=== PATIENT | male | born 1940 | race Caucasian/White ===

== ENCOUNTER 2017-05-15 19:48 | Emergency (ER) | payer MEDICARE, SELFPAY ==
[2017-05-15 19:49] VITALS: BP 143/102; PULSE 87; RESP 17; TEMP 36.5; O2SAT 96; BMI 33.3
--- NOTE | 2017-05-15 19:52 | NURSING ---
CALLED FOR EKG PER RN REQUEST, PULLED OLD EKG'S FOR
--- NOTE | 2017-05-15 20:00 | EKG12_ITS ---
Test Reason : CP Blood Pressure : / mmHG Vent. Rate : 094 BPM Atrial Rate : 138 BPM P-R Int : 000 ms QRS Dur : 088 ms QT Int : 386 ms P-R-T Axes : 000 060 024 degrees QTc Int : 482 ms Atrial fibrillation with premature ventricular or aberrantly conducted complexes Prolonged QT Abnormal ECG Confirmed by CRISTI HUFF, REECE ([id number]), editor farm journal RUTH ANN GALLAGHER ([id number]) on 05/18/2017 1:44:39 PM Referred By: CURT Confirmed By:REECE COLIN MD
--- NOTE | 2017-05-15 20:01 | RAD_ITS ---
STUDY: X-RAY CHEST REASON FOR EXAM: Male, 77 years old. Chest pain TECHNIQUE: Frontal and lateral views of the chest. COMPARISON: November 09, 2015 FINDINGS: Sternotomy wires are noted. The lungs are clear and expanded. There is no demonstrated pleural abnormality. Normal size heart. Normal mediastinum and jose j. Normal visualized pulmonary arteries. Normal visualized aortic arch and descending thoracic aorta. Normal visualized thoracic spine. Normal visualized ribs, clavicles, and shoulders. Moderate hiatal hernia. RAD/Chest PA and Lateral IMPRESSION: Moderate hiatal hernia. Sternotomy. No acute disease. Electronically Signed: Rayomnd Olmos MD at 20:34 EST , Service support ,
[2017-05-15 20:12] LABS: Absolute Lymphocyte Count 1.12 X10^3/ul (0.83-4.51); Absolute Neutrophil Count 5.2 X10^3/uL (2.0-7.7); Basophil# 0.02 X10^3/uL; Basophil% 0.3 % (0-1); Eosinophil# 0.06 X10^3/uL; Eosinophils% 0.9 % (0-5); Hematocrit 42.5 % (40-54); Hemoglobin 13.9 g/dl (13.0-16.5); Lymphocyte # 1.12 X10^3/ul (4.0); Lymphocyte % 16.1 % (19-41); Mean Corp Hgb Conc 32.7 g/gl (32-36); Mean Corpuscular Hgb 33.2 pg (27.0-32.0); Mean Corpuscular Volume 101.4 fL (80-94); Mean Platelet Vol. 10.4 fl (6.2-12.0); Monocyte# 0.53 X10^3/uL; Monocyte% 7.6 % (0-10); Platelet Count 190 K/mm3 (150-450); RBC Distribution Width CV 14.6 % (11.6-14.6); RBC Distribution Width SD 54.2 fl (35.1-43.9); Red Blood Count 4.19 M/mm3 (4.6-6.2); White Blood Count 6.9 K/mm3 (4.4-11.0)
[2017-05-15 20:16] LABS: International Normalized Ratio 2.6; Prothrombin Time (Protime)PT. 27.1 SECONDS (11.7-14.9)
[2017-05-15 20:25] LABS: AST(SGOT) 31 U/L (15-37); Alanine Aminotransfer ALT/SGPT 31 U/L (16-61); Albumin, Serum 3.7 g/dL (3.2-5.0); Alkaline Phosphatase 167 U/L (45-117); Anion Gap 11 (5-15); BUN 64 mg/dL (7-18); BUN/Creat Ratio 41.8 RATIO (10-20); Bilirubin, Direct 0.29 mg/dL (0.00-0.30); Calcium,Total 9.1 mg/dL (8.5-10.1); Chloride 93 mmol/L (98-107); Creatinine, Serum 1.53 mg/dL (0.70-1.30); EST Glomerular Filtration Rate 47 mL/min (>60); Est Glom Filt Rate - Afr Amer 57 mL/min (>60); Estimated Creatinine Clearance 37.88 ml/min; Globulin 4.4 g/dL (2.2-4.2); Glucose 100 mg/dL (74-106); Potassium 3.6 mmol/L (3.5-5.1); Protein, Total 8.1 g/dL (6.4-8.2); Sodium Level 138 mmol/L (136-145)
[2017-05-15 20:27] LABS: POSITIVE COUNT NO; POSITIVE DIFFERENTIAL NO; POSITIVE MORPHOLOGY NO
--- NOTE | 2017-05-15 20:58 | ED.VISSUMM ---
- ER Visit Summary Date of Service: 05/15/17 Chief Complaint: Bilateral acute upper abdominal pain and left arm discomfort History of Present Illness: The patient is a 77 M who has history of Alzheimer's dementia and is not a good informant. He told the triage nurse he had right-sided chest pain. Daughter who is a OB nurse at [employer] states he complained of bilateral upper abdominal discomfort with discomfort in his left upper extremity. He did not appear pale. He was not sweating, nor did he look as if he was having difficulty breathing. He did not voice any complaints of nausea. There is no vomiting. He did make the comment that he believes he is constipated. He does have history of atrial fibrillation and is on Coumadin. He has no known coronary artery disease. 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 Presently he states he has no symptoms or complaints. Physical Examination: Vital signs are marked for slight elevation blood pressure 143/102. HEENT exam is unremarkable. Heart is regular. Lungs are clear to auscultation with good movement bilaterally. There is no reproducible chest or back pain. Abdomen is soft nontender with out hepatosplenomegaly. Negative clinical Rossi sign. Lower extremities remarkable for venous stasis dermatitis with bilateral lymphedema. He is not oriented to date or place. He even commented he is not sure why he is here. Test Results: Hepatic profile is remarkable for slight elevation of alk phos. Electrode panel was marked for slight elevation of CO2 and creatinine at 34 and 1.53 respectively. GFR is 41.8. White count H&H normal. Troponin less than 0.02. Chest x-ray reveals no acute pathology. Emergency Department Course and Treatment: Because his symptoms started after he had steak and lb Raymond's hepatic profile was obtained. Of note he did get improvement with the Tums. This may represent gastric distress/irritation/gastritis/esophagitis. This also may be an atypical cardiac presentation. Treatment Plan: Since his EKG cardiac enzymes are normal and the fact that he got relief 1 hour after he was given Tums and the pain was located in the abdomen and his only concern was that he was constipated it is my opinion this is most likely GI and he could follow-up with Dr. Marx as an outpatient. Disposition: Discharged to home with and daughter Impression: 1. Acute bilateral upper abdominal pain 2. Suspect indigestion versus GERD 3. History of chronic atrial fibrillation 4. History of prostate cancer 5. History hypertension 6. History of hypercholesterolemia 7. History of Alzheimer's dementia 8. History of bilateral lymphedema with venous dermatitis This note was generated with [employer] dictation software. It may contain incorrect words, spelling, and punctuation that were not noted in review of the chart prior to signing ED Disposition - Plan for ED Patient: Disposition: Home or Assisted Living Chief Complaint: Chest Pain Instructions: ED Epigastric Pain [facility] Referrals: Coleman Bang MD [Primary Care Provider] - As Needed
--- NOTE | 2017-05-15 21:06 | ED.DCSUM_ITS ---
- ER Visit Summary Date of Service: 05/15/17 Chief Complaint: Bilateral acute upper abdominal pain and left arm discomfort History of Present Illness: The patient is a 77 M who has history of Alzheimer' s dementia and is not a good informant. He told the triage nurse he had right- sided chest pain. Daughter who is a OB nurse at [employer] states he complained of bilateral upper abdominal discomfort with discomfort in his left upper extremity. He did not appear pale. He was not sweating, nor did he look as if he was having difficulty breathing. He did not voice any complaints of nausea. There is no vomiting. He did make the comment that he believes he is constipated. He does have history of atrial fibrillation and is on Coumadin. He has no known coronary artery disease. 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 Presently he states he has no symptoms or complaints. Physical Examination: Vital signs are marked for slight elevation blood pressure 143/102. HEENT exam is unremarkable. Heart is regular. Lungs are clear to auscultation with good movement bilaterally. There is no reproducible chest or back pain. Abdomen is soft nontender with out hepatosplenomegaly. Negative clinical Rossi sign. Lower extremities remarkable for venous stasis dermatitis with bilateral lymphedema. He is not oriented to date or place. He even commented he is not sure why he is here. Test Results: Hepatic profile is remarkable for slight elevation of alk phos. Electrode panel was marked for slight elevation of CO2 and creatinine at 34 and 1.53 respectively. GFR is 41.8. White count H&H normal. Troponin less than 0.02. Chest x-ray reveals no acute pathology. Emergency Department Course and Treatment: Because his symptoms started after he had steak and lb Raymond's hepatic profile was obtained. Of note he did get improvement with the Tums. This may represent gastric distress/irritation/ gastritis/esophagitis. This also may be an atypical cardiac presentation. Treatment Plan: Since his EKG cardiac enzymes are normal and the fact that he got relief 1 hour after he was given Tums and the pain was located in the abdomen and his only concern was that he was constipated it is my opinion this is most likely GI and he could follow-up with Dr. Marx as an outpatient. Disposition: Discharged to home with and daughter Impression: 1. Acute bilateral upper abdominal pain 2. Suspect indigestion versus GERD 3. History of chronic atrial fibrillation 4. History of prostate cancer 5. History hypertension 6. History of hypercholesterolemia 7. History of Alzheimer's dementia 8. History of bilateral lymphedema with venous dermatitis This note was generated with [employer] dictation software. It may contain incorrect words, spelling, and punctuation that were not noted in review of the chart prior to signing ED Disposition - Plan for ED Patient: Disposition: Home or Assisted Living Chief Complaint: Chest Pain Instructions: ED Epigastric Pain [facility] Referrals: Coleman Bang MD [Primary Care Provider] - As Needed
[2017-05-15 21:21] VITALS: BP 146/91; PULSE 85; PULSE 91; RESP 14; RESP 17; O2SAT 95; O2SAT 98
== END 2017-05-15 21:32 | disposition home or self-care (01) ==
PROVIDERS: Emergency Provider Emergency Medicine; Family Provider Family Medicine; PCP Family Medicine
DX: R10.12 Left upper quadrant pain (principal); R10.11 Right upper quadrant pain; M79.602 Pain in left arm; I48.2 Chronic atrial fibrillation; I11.0 Hypertensive heart disease with heart failure; I50.9 Heart failure, unspecified; E78.00 Pure hypercholesterolemia, unspecified; I87.2 Venous insufficiency (chronic) (peripheral); I89.0 Lymphedema, not elsewhere classified; G30.9 Alzheimer's disease, unspecified; F02.80 Dementia in other diseases classified elsewhere, unspecified severity, without behavioral disturbance, psychotic disturbance, mood disturbance, and anxiety; E66.9 Obesity, unspecified; Z85.46 Personal history of malignant neoplasm of prostate; Z79.01 Long term (current) use of anticoagulants; Z79.899 Other long term (current) drug therapy
CPT/HCPCS: 71046; 80048; 80076; 84484; 85025; 85610; 93005; 99284; A4216

== ENCOUNTER 2017-05-16 13:30 | Outpatient (RCR) | payer MEDICARE, SELFPAY ==
[2017-05-09 12:54] VITALS: BP 124/70; PULSE 80; RESP 16; TEMP 36.4; BMI 33.4
--- NOTE | 2017-05-09 14:20 | HP.PCM_ITS ---
(1) Pressure ulcer of buttock Status: Chronic Current Visit: Yes Qualifiers: Pressure ulcer stage: stage 2 Laterality: right Qualified Code(s): L89.312 - Pressure ulcer of right buttock, stage 2 Code(s): L89.309 - Pressure ulcer of unspecified buttock, unspecified stage (2) Physical deconditioning Status: Chronic Current Visit: Yes Code(s): R53.81 - Other malaise (3) Sleep apnea Status: Chronic Current Visit: No Code(s): G47.30 - Sleep apnea, unspecified (4) Atrial fibrillation Status: Chronic Current Visit: No Code(s): I48.91 - Unspecified atrial fibrillation (5) Hypertension Status: Chronic Current Visit: No Code(s): I10 - Essential (primary) hypertension (6) Dementia Status: Chronic Current Visit: No Qualifiers: Dementia type: Alzheimer's disease Code(s): F03.90 - Unspecified dementia without behavioral disturbance (7) Alzheimer's disease Status: Chronic Current Visit: No Code(s): G30.9 - Alzheimer's disease, unspecified (8) Weakness Status: Chronic Current Visit: No Code(s): R53.1 - Weakness (9) Dependent edema Status: Chronic Current Visit: No Code(s): R60.9 - Edema, unspecified (10) History of stroke Status: Chronic Current Visit: No Code(s): Z86.73 - Personal history of transient ischemic attack (TIA), and cerebral infarction without residual deficits (11) Hyperlipidemia Status: Chronic Current Visit: No Code(s): E78.5 - Hyperlipidemia, unspecified (12) CHF (congestive heart failure) Status: Chronic Current Visit: No Code(s): I50.9 - Heart failure, unspecified (13) Prostate cancer Status: Chronic Current Visit: No Code(s): C61 - Malignant neoplasm of prostate (14) History of endocarditis Status: Chronic Current Visit: No Code(s): Z86.79 - Personal history of other diseases of the circulatory system (15) Obesity Status: Chronic Current Visit: No Code(s): E66.9 - Obesity, unspecified (16) Swelling of lower extremity Status: Chronic Current Visit: No Code(s): M79.89 - Other specified soft tissue disorders (17) Edema of both legs Status: Chronic Current Visit: No Code(s): R60.0 - Localized edema History of Present Illness Date of Service: 05/09/17 Chief Complaint: Pressure ulceration of the right buttock, stage II History of Wound: This is a 77-year-old white male who presents with a chronic ulceration on the right buttock, present for approximately 8 weeks. It appears to represent a pressure ulceration. The patient is not ambulatory, and is physically deconditioned. He spends the preponderance of his day in a sitting position, and also sleeps in a sitting position as well. The patient lives at home with his . Family members assist the in caring for her . The patient's has been using collagen hydrogel topically. Has been known to have swelling in his lower extremities, for which she has been treated in the past. He currently wears compression stockings of 10-15 mmHg compression, on a daily basis. He also uses mechanical compression pumps as well. He has a [place] cardiac valve, for which she is on systemic anticoagulation therapy. His appetite is said to be good. He suffers from dementia and Alzheimer's disease. He is also obese. Past Medical History Past Medical History: Chronic Problems Pressure ulcer of buttock (Chronic) Physical deconditioning (Chronic) Sleep apnea (Chronic) Atrial fibrillation (Chronic) Hypertension (Chronic) Dementia (Chronic) Alzheimer's disease (Chronic) Weakness (Chronic) Lymphedema (Chronic) Ulcer of left lower leg (Chronic) Chronic venous insufficiency (Chronic) Dependent edema (Chronic) History of stroke (Chronic) H/O prosthetic mitral valve (Chronic) Renal insufficiency (Chronic) Limited mobility (Chronic) Hyperlipidemia (Chronic) CHF (congestive heart failure) (Chronic) Prostate cancer (Chronic) History of endocarditis (Chronic) Obesity (Chronic) Ulcer of right leg (Chronic) Swelling of lower extremity (Chronic) Edema of both legs (Chronic) Past Medical History: Patient has a history of retention, hyperlipidemia, sleep apnea, dementia, Alzheimer's disease, peripheral arterial occlusive disease, obesity, atrial fibrillation, lower extremity swelling and edema, cerebro- vascular accident, and prostate cancer which was treated with radiation. The patient's history is negative for myocardial infarction, diabetes mellitus, pulmonary disease, and thyroid disease. Surgical History: cataract - Bilateral, herniorrhaphy - Inguinal hernia repair, tonsillectomy, - - Mitral valve replacement, 1993 Allergies/Adverse Reactions: Allergies atorvastatin calcium [From Lipitor] Adverse Reaction (Verified 05/09/17 13:26) Other Home Medications: Ambulatory Orders Medication Instructions Recorded Finasteride [Proscar] 5 mg PO DAILY #30 tablet 11/20/15 Memantine Hydrochloride [Namenda] 10 mg PO BID #60 tablet 11/20/15 Metoprolol Tartrate [Lopressor 25 mg PO BID #60 tablet 11/20/15 (beta jeffery)] Tamsulosin HCl [Flomax] 0.8 mg PO DAILY@1730 #60 capsule 11/20/15 Acetaminophen [Tylenol Extra 500 mg PO QHS 05/09/17 Strength] Acetaminophen [Tylenol] 1,000 mg PO DAILY 05/09/17 Alpha Lipoic Acid 50 mg PO DAILY 05/09/17 Aps-Ii 2 tab PO DAILY 05/09/17 Famotidine [Pepcid] 40 mg PO DAILY 05/09/17 Focus Attention 1 - 2 tab PO DAILY 05/09/17 Furosemide [Lasix] 80 mg PO BID@1000,1800 05/09/17 Goldenseal/Echinacea Purpurea 2 each PO DAILY 05/09/17 [Echinacea & Goldenseal Cap] [id number] 1 - 2 tab PO DAILY 05/09/17 Metolazone [Zaroxolyn] 2.5 mg PO DAILY 05/09/17 Mood Elevator 1 - 2 tab PO DAILY 05/09/17 Senna/Docusate Sodium [Senokot-S] 1 tablet PO DAILY 05/09/17 Spironolactone [Aldactone] 50 mg PO DAILY 05/09/17 Tolterodine Tartrate [Detrol LA] 4 mg PO DAILY 05/09/17 Ubidecarenone [Coq10] mg PO BID 05/09/17 Warfarin [Coumadin ([facility]KC)] 3 mg PO DAILY 05/09/17 - Family History Maternal No pertinent history, - - Not much is known about the patient's parents. They each lived to be approximately 85 years of age. The patient's father was known to suffer from obesity and a stroke. Social History: Patient is a retired [employer]. Does not smoke or consume alcohol beverages. He live with his . Lives: Spouse/ Significant Other Smoking Status: Never smoker Tobacco Use: Non-smoker Alcohol: None Drugs: None Review of Systems Constitutional: Denies: Chills, Fever, Weight Change Eyes: Denies: Pain, Vision Change HEENT: Denies: Difficulty Hearing, Difficulty Swallowing, Sinus Congestion Cardiovascular: Denies: Chest Pain, Palpitations Respiratory: Denies: Cough, Shortness of Breath Gastrointestinal: Denies: Diarrhea, Nausea, Vomiting Genitourinary: Denies: Dysuria, Hematuria Endocrine: Denies: Heat/ Cold Intolerance, Polydipsia, Polyuria Hematologic/ Lymphatic: Denies: Easy Bruising, Easy Bleeding - Physical Exam Vital Signs Temp Pulse Resp BP 97.5 F L 80 16 124/70 H 05/09/17 12:54 05/09/17 12:54 05/09/17 12:54 05/09/17 12:54 General: Alert, Oriented x3, Cooperative, No apparent distress, Well developed, Well nourished, - - The patient is noted to be weak and deconditioned. HEENT: Atraumatic, PERRLA, EOMI, Normocephalic Oral: Moist Mucosa, No Gingival or Mucosal Lesions/ Ulcerations Neck: Supple, No JVD, Negative Carotid Bruits, No Nodes, No Nuchal Rigidity, Trachea Midline Lungs: Clear to auscultation, Normal air movement, No rhonchi, No wheeze, No rales Cardiovascular: Regular rate, Regular Rhythm, Normal S1, Normal S2, No murmurs, No Ectopic Activity Abdomen: Soft, Non Tender, Non-Distended, Obese Extremities: No clubbing, No cyanosis, No Calf Tenderness, - - Graduated compression stockings are in place bilaterally Skin: No rashes, - - She has a superficial pressure ulceration on the right buttock, which appears to be a stage II. Dimensions are documented elsewhere. There is no sign of infection or cellulitis. Base of the ulceration is pink and healthy in appearance. Wound Measurements and Assessment WC - Nurse 1 - General Ulcer Measurement Start: 05/09/17 12:48 Freq: Status: Active Protocol: Activity Type Activity Date Activity User E-Sign Co-Sign Detail Recorded Client Recorded Date Recorded By Document 05/09/17 12:54 [facility] [id number] 05/09/17 13:14 [facility] 05/09/17 12:54 Wound Center Nurse 1 [Ulcer Assessment] #5- RT INNER BUTTOCK -Combined with other wound No -Current Size (cm) - Length 1.3 -Current Size (cm) - Width 0.9 -Current Size (cm) - Depth 0.1 -Total Square Cm 1.17 -Date of Last Picture (Recall this 05/09/17 field) -Photo Taken Yes -Epithelialization None Present -Tunneling No -Undermining/Tunneling No -Exudate Amt None Present (0 %) -Wound Margin Distinct, Outline Attached -Granulation Amt Large (67-100%) -Granulation Quality Pale [place] -Slough/Fibrin No -Necrosis Amt None Present (0 %) -Structure Exposed None/Limited to Skin Breakdown -Texture (Dianne-wound Skin Appearance) Scarring -Moisture (Dianne-wound Skin Appearance Assessed ) -Color (Dianne-wound Skin Appearance) Erythema -Temperature (Dianne-wound Skin No Abnormality Appearance) (Pt Warm) -Tenderness on Palpation (Dianne-wound Yes Skin Appearance) -Ulcer Cleansing Rinsed/ Irrigated with Saline -Foul Odor after Cleansing No -Anesthetic Used 4% Lidocaine Solution WC - Nurse 2 - General Ulcer CM Notes Start: 05/09/17 12:48 Freq: Status: Active Protocol: Activity Type Activity Date Activity User E-Sign Co-Sign Detail Recorded Client Recorded Date Recorded By Document 05/09/17 13:54 [id number] 05/09/17 13:55 ROSALIE 05/09/17 13:54 Wound Center Nurse 2 [Procedure/Treatment] -Time 13:54 -Correct Patient Yes -Correct Side, Site, Position Yes -Correct Procedure Yes -Procedure Performed Yes -Type of Procedure Debridement -Clinical Debridement Subcutaneous -Post Debridement Size (cm) - Length 1.4 -Post Debridement Size (cm) - Width 1.0 -Post Debridement Size (cm) - Depth 0.1 -Total Square Cm 1.40 -Wound/Ulcer Outcome Not Healed -Ulcer Cleansing Rinsed/ Irrigated with Saline -Foul Odor after Cleansing No -Bioengineered Tissue No -Topical Lidocaine (%) 4 -Lidocaine (ml) 5 -Bleeding Controlled with NA -Treatment Response Procedure Tolerated Well [See Physician Procedure note for Specifics] Pain Scale: 0-10 Numeric [Pain] -Is Patient Pain Free? Yes Musculoskeletal: Muscle Wasting Neurological: Cranial nerves II-XII grossly intact, Neuro grossly intact Psych/Mental Status: Normal Affect, Appropriate, Alert and oriented to time, place, person, mood and affect Debridement Note Post-Debridement Measurements/Treatment WC - Nurse 2 - General Ulcer CM Notes Start: 05/09/17 12:48 Freq: Status: Active Protocol: Activity Type Activity Date Activity User E-Sign Co-Sign Detail Recorded Client Recorded Date Recorded By Document 05/09/17 13:54 [id number] 05/09/17 13:55 05/09/17 13:54 Wound Center Nurse 2 #5- RT INNER BUTTOCK -Time 13:54 -Correct Patient Yes -Correct Side, Site, Position Yes -Correct Procedure Yes -Procedure Performed Yes -Type of Procedure Debridement -Clinical Debridement Subcutaneous -Post Debridement Size (cm) - Length 1.4 -Post Debridement Size (cm) - Width 1.0 -Post Debridement Size (cm) - Depth 0.1 -Total Square Cm 1.40 -Wound/Ulcer Outcome Not Healed -Ulcer Cleansing Rinsed/ Irrigated with Saline -Foul Odor after Cleansing No -Bioengineered Tissue No -Topical Lidocaine (%) 4 -Lidocaine (ml) 5 -Bleeding Controlled with NA -Treatment Response Procedure Tolerated Well Pain Scale: 0-10 Numeric Is Patient Pain Free? Yes Laterality: Right - Buttock Type of Debridement: Excisional debridement Anesthesia Used: 4% Lidocaine Solution Depth: Down to and including healthy tissue, in the subcutaneous layer Percentage of wound debrided: 100 Instrument Used: 5mm curette Severity: Fat Layer Exposed Amount of bleeding with debridement: Mild Bleeding Controlled with: Compression and gauze Patient tolerated procedure well Assessment/Plan Active Problems Pressure ulcer of buttock (Chronic) Physical deconditioning (Chronic) Assessment: This is a 77-year-old male who is severely deconditioned and nonambulatory. He spends long hours each day in a sitting position, and sleeps in a sitting position as well. He has developed an ulceration on the right buttock, which appears to be related to pressure phenomenon or friction forces. It appears to be a stage II pressure ulceration. Patient has other existing medical conditions, which are documented elsewhere. Plan: Offloading measures are to be implemented. The means by which this is to be accomplished have been described to the patient and his , who is his caregiver. He is to avoid prolonged sitting. Frequent repositioning has been recommended. Roho cushion is to be prescribed. We are to obtain routine laboratory studies, including a CBC and a comprehensive metabolic profile. We are to initiate the use of collagenase Santyl topically to the right buttock ulceration. The patient and his have been advised to elevate his lower extremities as much as possible, continue with graduated compression stockings, and to continue with the use of mechanical compression pumps. Patient is to return in 1 week for reassessment. The patient's nutrition has been recommended. Appetite is said to be good. He is also said to be continent, and appropriate hygiene in the perianal area is recommended. The patient is not a smoker. Influenza vaccine was not administered today. The patient was 225 pounds. He stands 5 feet 8 inches tall. His BMI is 34.2, which places him in a class I category. Weight loss has been recommended, and the patient has been advised to collaborate with his primary care physician in this regard.
[2017-05-09 17:06] LABS: ALB/GLOB Ratio 0.9 RATIO (0.9-2.4); AST(SGOT) 23 U/L (15-37); Alanine Aminotransfer ALT/SGPT 25 U/L (16-61); Albumin, Serum 3.9 g/dL (3.2-5.0); Alkaline Phosphatase 161 U/L (45-117); Anion Gap 7 (5-15); BUN 61 mg/dL (7-18); BUN/Creat Ratio 34.1 RATIO (10-20); Calcium,Total 9.2 mg/dL (8.5-10.1); Chloride 97 mmol/L (98-107); Creatinine, Serum 1.79 mg/dL (0.70-1.30); EST Glomerular Filtration Rate 39 mL/min (>60); Est Glom Filt Rate - Afr Amer 47 mL/min (>60); Estimated Creatinine Clearance 32.37 ml/min; Globulin 4.3 g/dL (2.2-4.2); Glucose 91 mg/dL (74-106); Potassium 3.7 mmol/L (3.5-5.1); Protein, Total 8.2 g/dL (6.4-8.2); Sodium Level 138 mmol/L (136-145)
[2017-05-09 17:22] LABS: Hematocrit 40.3 % (40-54); Hemoglobin 12.8 g/dl (13.0-16.5); Mean Corp Hgb Conc 31.8 g/gl (32-36); Mean Corpuscular Hgb 32.8 pg (27.0-32.0); Mean Corpuscular Volume 103.3 fL (80-94); Mean Platelet Vol. 10.8 fl (6.2-12.0); Platelet Count 194 K/mm3 (150-450); RBC Distribution Width SD 56.4 fl (35.1-43.9); White Blood Count 5.3 K/mm3 (4.4-11.0)
[2017-05-09 18:12] LABS: Scan Indicated on CBC? Y/N NO
[2017-05-16 13:19] VITALS: BP 119/81; PULSE 92; RESP 16; TEMP 36.3; BMI 33.4
--- NOTE | 2017-05-16 14:10 | PCM.WC.HP ---
(1) Pressure ulcer of buttock Status: Chronic Current Visit: Yes Qualifiers: Pressure ulcer stage: stage 2 Laterality: right Qualified Code(s): L89.312 - Pressure ulcer of right buttock, stage 2 Code(s): L89.309 - Pressure ulcer of unspecified buttock, unspecified stage (2) Physical deconditioning Status: Chronic Current Visit: Yes Code(s): R53.81 - Other malaise (3) Sleep apnea Status: Chronic Current Visit: No Code(s): G47.30 - Sleep apnea, unspecified (4) Atrial fibrillation Status: Chronic Current Visit: No Code(s): I48.91 - Unspecified atrial fibrillation (5) Hypertension Status: Chronic Current Visit: No Code(s): I10 - Essential (primary) hypertension (6) Dementia Status: Chronic Current Visit: No Qualifiers: Dementia type: Alzheimer's disease Code(s): F03.90 - Unspecified dementia without behavioral disturbance (7) Alzheimer's disease Status: Chronic Current Visit: No Code(s): G30.9 - Alzheimer's disease, unspecified (8) Weakness Status: Chronic Current Visit: No Code(s): R53.1 - Weakness (9) Dependent edema Status: Chronic Current Visit: No Code(s): R60.9 - Edema, unspecified (10) History of stroke Status: Chronic Current Visit: No Code(s): Z86.73 - Personal history of transient ischemic attack (TIA), and cerebral infarction without residual deficits (11) Hyperlipidemia Status: Chronic Current Visit: No Code(s): E78.5 - Hyperlipidemia, unspecified (12) CHF (congestive heart failure) Status: Chronic Current Visit: No Code(s): I50.9 - Heart failure, unspecified (13) Prostate cancer Status: Chronic Current Visit: No Code(s): C61 - Malignant neoplasm of prostate (14) History of endocarditis Status: Chronic Current Visit: No Code(s): Z86.79 - Personal history of other diseases of the circulatory system (15) Obesity Status: Chronic Current Visit: No Code(s): E66.9 - Obesity, unspecified (16) Swelling of lower extremity Status: Chronic Current Visit: No Code(s): M79.89 - Other specified soft tissue disorders (17) Edema of both legs Status: Chronic Current Visit: No Code(s): R60.0 - Localized edema History of Present Illness Date of Service: 05/16/17 Chief Complaint: Pressure ulceration of the right buttock, stage II History of Wound: This is a 77-year-old white male who presents with a chronic ulceration on the right buttock, present for approximately 8 weeks. It appears to represent a pressure ulceration. The patient is not ambulatory, and is physically deconditioned. He spends the preponderance of his day in a sitting position, and also sleeps in a sitting position as well. The patient lives at home with his . Family members assist the in caring for her . The patient's has been using collagen hydrogel topically. The patient has been known to have swelling in his lower extremities, for which he has been treated in the past. He currently wears compression stockings of 10-15 mmHg compression, on a daily basis. He also uses mechanical compression pumps as well. 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 His appetite is said to be good. He suffers from dementia and Alzheimer's disease. He is also obese. There has been significant improvement in the status of his right buttock ulceration since initially seen 1 week ago. Patient is now nearly healed, with evidence of increasing epithelialization. Past Medical History Past Medical History: Chronic Problems Pressure ulcer of buttock (Chronic) Physical deconditioning (Chronic) Sleep apnea (Chronic) Atrial fibrillation (Chronic) Hypertension (Chronic) Dementia (Chronic) Alzheimer's disease (Chronic) Weakness (Chronic) Lymphedema (Chronic) Ulcer of left lower leg (Chronic) Chronic venous insufficiency (Chronic) Dependent edema (Chronic) History of stroke (Chronic) H/O prosthetic mitral valve (Chronic) Renal insufficiency (Chronic) Limited mobility (Chronic) Hyperlipidemia (Chronic) CHF (congestive heart failure) (Chronic) Prostate cancer (Chronic) History of endocarditis (Chronic) Obesity (Chronic) Ulcer of right leg (Chronic) Swelling of lower extremity (Chronic) Edema of both legs (Chronic) Surgical History: cataract - Bilateral, herniorrhaphy - Inguinal hernia repair, tonsillectomy, - - Mitral valve replacement, 1993 Allergies/Adverse Reactions: Allergies atorvastatin calcium [From Lipitor] Adverse Reaction (Verified 05/15/17 19:49) Other Home Medications: Ambulatory Orders Medication Instructions Recorded Finasteride [Proscar] 5 mg PO DAILY #30 tablet 11/20/15 Memantine Hydrochloride [Namenda] 10 mg PO BID #60 tablet 11/20/15 Metoprolol Tartrate [Lopressor 25 mg PO BID #60 tablet 11/20/15 (beta jeffery)] Tamsulosin HCl [Flomax] 0.8 mg PO DAILY@1730 #60 capsule 11/20/15 Alpha Lipoic Acid 50 mg PO DAILY 05/09/17 Aps-Ii 2 tab PO DAILY 05/09/17 Famotidine [Pepcid] 40 mg PO DAILY 05/09/17 Goldenseal/Echinacea Purpurea 2 each PO DAILY 05/09/17 [Echinacea & Goldenseal Cap] Ruiark-9-Seghlnrx 1 - 2 tab PO DAILY 05/09/17 Metolazone [Zaroxolyn] 2.5 mg PO DAILY 05/09/17 Senna/Docusate Sodium [Senokot-S] 1 tablet PO DAILY 05/09/17 Spironolactone [Aldactone] 50 mg PO DAILY 05/09/17 Tolterodine Tartrate [Detrol LA] 4 mg PO DAILY 05/09/17 Ubidecarenone [Coq10] 100 mg PO BID 05/09/17 Warfarin [Coumadin ([facility])] 3 mg PO DAILY 05/09/17 Potassium Chloride [K-Dur] 20 meq PO DAILY 05/15/17 Simvastatin [Zocor] 20 mg PO QHS 05/15/17 Tree Pollen-Black Jarales [Black 1 tab PO DAILY 05/15/17 Jarales Pollen] - Family History Maternal No pertinent history, - - Not much is known about the patient's parents. They each lived to be approximately 85 years of age. The patient's father was known to suffer from obesity and a stroke. Lives: Spouse/ Significant Other Smoking Status: Never smoker Tobacco Use: Non-smoker Alcohol: None Drugs: None Review of Systems Constitutional: Denies: Chills, Fever, Weight Change Eyes: Denies: Pain, Vision Change HEENT: Denies: Difficulty Hearing, Difficulty Swallowing, Sinus Congestion Cardiovascular: Denies: Chest Pain, Palpitations Respiratory: Denies: Cough, Shortness of Breath Gastrointestinal: Denies: Diarrhea, Nausea, Vomiting Genitourinary: Denies: Dysuria, Hematuria Endocrine: Denies: Heat/ Cold Intolerance, Polydipsia, Polyuria Hematologic/ Lymphatic: Denies: Easy Bruising, Easy Bleeding - Physical Exam Vital Signs Temp Pulse Resp BP 97.4 F L 92 16 119/81 H 05/16/17 13:19 05/16/17 13:19 05/16/17 13:19 05/16/17 13:19 General: Alert, Oriented x3, Cooperative, No apparent distress, Well developed, Well nourished HEENT: Atraumatic, PERRLA, EOMI, Normocephalic Oral: Moist Mucosa Neck: No JVD Lungs: Normal air movement Abdomen: Non-Distended Extremities: No clubbing, No cyanosis, No Calf Tenderness Skin: - - Right buttock ulceration is now nearly completely healed and epithelialized. There is no sign of infection or cellulitis. Dimensions are documented elsewhere. Wound Measurements and Assessment WC - Nurse 1 - General Ulcer Measurement Start: 05/09/17 12:48 Freq: Status: Active Protocol: Activity Type Activity Date Activity User E-Sign Co-Sign Detail Recorded Client Recorded Date Recorded By Document 05/16/17 13:19 DL [id number] 05/16/17 13:24 DL 05/16/17 13:19 Wound Center Nurse 1 [Ulcer Assessment] #5- RT INNER BUTTOCK -Current Size (cm) - Length 1 -Current Size (cm) - Width 0.9 -Current Size (cm) - Depth 0.1 -Total Square Cm 0.9 -Photo Taken No -Exudate Amt Small (1-33%) -Exudate Type Serosanguineous -Wound Margin Distinct, Outline Attached -Granulation Quality [place] -Necrosis Amt Large (67-100%) -Necrotic Tissue Type Adherent Slough -Structure Exposed N/A -Texture (Dianne-wound Skin Appearance) No Abnormality -Moisture (Dianne-wound Skin Appearance No Abnormality ) -Color (Dianne-wound Skin Appearance) No Abnormality -Temperature (Dianne-wound Skin No Abnormality Appearance) (Pt Warm) -Ulcer Cleansing Wound Cleanser -Foul Odor after Cleansing No -Anesthetic Used 4% Lidocaine Solution WC - Nurse 2 - General Ulcer CM Notes Start: 05/09/17 12:48 Freq: Status: Active Protocol: Activity Type Activity Date Activity User E-Sign Co-Sign Detail Recorded Client Recorded Date Recorded By Document 05/16/17 13:44 JS [id number] 05/16/17 13:54 05/16/17 13:44 Wound Center Nurse 2 [Procedure/Treatment] -Time 13:44 -Correct Patient Yes -Correct Side, Site, Position Yes -Correct Procedure Yes -Procedure Performed No -Clinical Debridement Selective -Wound/Ulcer Outcome Not Healed -Ulcer Cleansing Rinsed/ Irrigated with Saline -Topical Lidocaine (%) 4 -Lidocaine (ml) 5 -Bleeding Controlled with NA -Treatment Response Procedure Tolerated Well [See Physician Procedure note for Specifics] Pain Scale: 0-10 Numeric [Pain] -Is Patient Pain Free? Yes Neurological: Cranial nerves II-XII grossly intact, Neuro grossly intact Psych/Mental Status: Normal Affect, Appropriate Debridement Note Post-Debridement Measurements/Treatment WC - Nurse 2 - General Ulcer CM Notes Start: 05/09/17 12:48 Freq: Status: Active Protocol: Activity Type Activity Date Activity User E-Sign Co-Sign Detail Recorded Client Recorded Date Recorded By Document 05/09/17 13:54 [id number] 05/09/17 13:55 Document 05/16/17 13:44 [id number] 05/16/17 13:54 05/09/17 05/16/17 13:54 13:44 Wound Center Nurse 2 #5- RT INNER BUTTOCK -Time 13:54 13:44 -Correct Patient Yes Yes -Correct Side, Site, Position Yes Yes -Correct Procedure Yes Yes -Procedure Performed Yes No -Type of Procedure Debridement -Clinical Debridement Subcutaneous Selective -Post Debridement Size (cm) - Length 1.4 -Post Debridement Size (cm) - Width 1.0 -Post Debridement Size (cm) - Depth 0.1 -Total Square Cm 1.40 -Wound/Ulcer Outcome Not Healed Not Healed -Ulcer Cleansing Rinsed/ Rinsed/ Irrigated with Irrigated with Saline Saline -Foul Odor after Cleansing No -Bioengineered Tissue No -Topical Lidocaine (%) 4 4 -Lidocaine (ml) 5 5 -Bleeding Controlled with NA NA -Treatment Response Procedure Procedure Tolerated Well Tolerated Well Pain Scale: 0-10 Numeric Is Patient Pain Free? Yes Yes No debridement was completed today Assessment/Plan Active Problems Pressure ulcer of buttock (Chronic) Physical deconditioning (Chronic) Assessment: This is a 77-year-old male who is severely deconditioned and nonambulatory. He spends long hours each day in a sitting position, and sleeps in a sitting position as well. He has developed an ulceration on the right buttock, which appears to be related to pressure phenomenon or friction forces. It appears to be a stage II pressure ulceration. Patient has other existing medical conditions, which are documented elsewhere. There has been significant improvement in the status of the patient's right buttock ulceration since his initial visit a week ago. It is now much smaller in size, with evidence of epithelialization. There is no sign of infection or cellulitis. Plan: Offloading measures are to be continued. The means by which this is to be accomplished have been described to the patient and his , who is his caregiver. He is to avoid prolonged sitting. Frequent repositioning has been recommended. Roho cushion is to be prescribed. We are to obtain routine laboratory studies, including a CBC and a comprehensive metabolic profile. We are to transition from collagenase Santyl to the use of collagen hydrogel topically on a daily basis. The patient and his have been advised to elevate his lower extremities as much as possible, continue with graduated compression stockings, and to continue with the use of mechanical compression pumps. Patient is to return in 1 week for reassessment. Adequate nutrition has been recommended. Appetite is said to be good. He is also said to be continent, and appropriate hygiene in the perianal area is recommended. We will attempt to procure a Roho cushion for offloading purposes. The patient is not a smoker. Influenza vaccine was not administered today. The patient was 225 pounds. He stands 5 feet 8 inches tall. His BMI is 34.2, which places him in a class I category. Weight loss has been recommended, and the patient has been advised to collaborate with his primary care physician in this regard.
== END 2017-05-18 23:59 ==
LOC: WC 13:30
PROVIDERS: Family Provider Family Medicine; PCP Family Medicine; Visit Provider Surgery
DX: L89.312 Pressure ulcer of right buttock, stage 2 (principal); I48.91 Unspecified atrial fibrillation; G47.30 Sleep apnea, unspecified; R53.81 Other malaise; G30.9 Alzheimer's disease, unspecified; F02.80 Dementia in other diseases classified elsewhere, unspecified severity, without behavioral disturbance, psychotic disturbance, mood disturbance, and anxiety; E78.5 Hyperlipidemia, unspecified; Z86.73 Personal history of transient ischemic attack (TIA), and cerebral infarction without residual deficits; E66.9 Obesity, unspecified; Z68.33 Body mass index [BMI] 33.0-33.9, adult; Z71.3 Dietary counseling and surveillance; R60.0 Localized edema; M79.89 Other specified soft tissue disorders; C61 Malignant neoplasm of prostate; I11.0 Hypertensive heart disease with heart failure; I50.9 Heart failure, unspecified; Z95.2 Presence of prosthetic heart valve
CPT/HCPCS: 11042; 80053; 85027; 99213; G0463

== ENCOUNTER 2017-05-30 14:30 | Outpatient (RCR) | payer MEDICARE, SELFPAY ==
[2017-05-19 01:13] VITALS: PULSE 92; RESP 16; TEMP 36.3
[2017-05-23 14:50] VITALS: BP 110/61; PULSE 84; RESP 16; TEMP 36.3
--- NOTE | 2017-05-23 15:53 | HP.PCM_ITS ---
(1) Pressure ulcer of buttock Status: Chronic Current Visit: Yes Qualifiers: Pressure ulcer stage: stage 2 Laterality: right Qualified Code(s): L89.312 - Pressure ulcer of right buttock, stage 2 Code(s): L89.309 - Pressure ulcer of unspecified buttock, unspecified stage (2) Physical deconditioning Status: Chronic Current Visit: Yes Code(s): R53.81 - Other malaise (3) Sleep apnea Status: Chronic Current Visit: No Code(s): G47.30 - Sleep apnea, unspecified (4) Atrial fibrillation Status: Chronic Current Visit: No Code(s): I48.91 - Unspecified atrial fibrillation (5) Hypertension Status: Chronic Current Visit: No Code(s): I10 - Essential (primary) hypertension (6) Dementia Status: Chronic Current Visit: No Qualifiers: Dementia type: Alzheimer's disease Code(s): F03.90 - Unspecified dementia without behavioral disturbance (7) Alzheimer's disease Status: Chronic Current Visit: No Code(s): G30.9 - Alzheimer's disease, unspecified (8) Weakness Status: Chronic Current Visit: No Code(s): R53.1 - Weakness (9) Dependent edema Status: Chronic Current Visit: No Code(s): R60.9 - Edema, unspecified (10) History of stroke Status: Chronic Current Visit: No Code(s): Z86.73 - Personal history of transient ischemic attack (TIA), and cerebral infarction without residual deficits (11) H/O prosthetic mitral valve Status: Chronic Current Visit: No Code(s): Z95.2 - Presence of prosthetic heart valve (12) Renal insufficiency Status: Chronic Current Visit: No Code(s): N28.9 - Disorder of kidney and ureter, unspecified (13) Limited mobility Status: Chronic Current Visit: No Code(s): Z74.09 - Other reduced mobility (14) Hyperlipidemia Status: Chronic Current Visit: No Code(s): E78.5 - Hyperlipidemia, unspecified (15) CHF (congestive heart failure) Status: Chronic Current Visit: No Code(s): I50.9 - Heart failure, unspecified (16) Prostate cancer Status: Chronic Current Visit: No Code(s): C61 - Malignant neoplasm of prostate (17) History of endocarditis Status: Chronic Current Visit: No Code(s): Z86.79 - Personal history of other diseases of the circulatory system (18) Obesity Status: Chronic Current Visit: No Code(s): E66.9 - Obesity, unspecified (19) Swelling of lower extremity Status: Chronic Current Visit: No Code(s): M79.89 - Other specified soft tissue disorders (20) Edema of both legs Status: Chronic Current Visit: No Code(s): R60.0 - Localized edema History of Present Illness Date of Service: 05/23/17 Chief Complaint: Pressure ulceration of the right buttock, stage II History of Wound: This is a 77-year-old white male who presents with a chronic ulceration on the right buttock, which had been present for approximately 8 weeks. It appears to represent a pressure ulceration. The patient is not ambulatory, and is physically deconditioned. He spends the preponderance of his day in a sitting position, and also sleeps in a sitting position as well. The patient lives at home with his . Family members assist the in caring for her . The patient's had been using collagen hydrogel topically. The patient has been known to have swelling in his lower extremities , for which he has been treated in the past. He currently wears compression stockings of 10-15 mmHg compression, on a daily basis. He also uses mechanical compression pumps as well. 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 His appetite is said to be good. He suffers from dementia and Alzheimer's disease. He is also obese. There has been significant improvement in the status of his right buttock ulceration since initially seen. The patient's ulceration has been diminishing in size, with evidence of increasing epithelialization. Past Medical History Past Medical History: Chronic Problems Pressure ulcer of buttock (Chronic) Physical deconditioning (Chronic) Sleep apnea (Chronic) Atrial fibrillation (Chronic) Hypertension (Chronic) Dementia (Chronic) Alzheimer's disease (Chronic) Weakness (Chronic) Lymphedema (Chronic) Ulcer of left lower leg (Chronic) Chronic venous insufficiency (Chronic) Dependent edema (Chronic) History of stroke (Chronic) H/O prosthetic mitral valve (Chronic) Renal insufficiency (Chronic) Limited mobility (Chronic) Hyperlipidemia (Chronic) CHF (congestive heart failure) (Chronic) Prostate cancer (Chronic) History of endocarditis (Chronic) Obesity (Chronic) Ulcer of right leg (Chronic) Swelling of lower extremity (Chronic) Edema of both legs (Chronic) Surgical History: cataract - Bilateral, herniorrhaphy - Inguinal hernia repair, tonsillectomy, - - Mitral valve replacement, 1993 Allergies/Adverse Reactions: Allergies atorvastatin calcium [From Lipitor] Adverse Reaction (Verified 05/15/17 19:49) Other Home Medications: Ambulatory Orders Medication Instructions Recorded Finasteride [Proscar] 5 mg PO DAILY #30 tablet 11/20/15 Memantine Hydrochloride [Namenda] 10 mg PO BID #60 tablet 11/20/15 Metoprolol Tartrate [Lopressor 25 mg PO BID #60 tablet 11/20/15 (beta jeffery)] Tamsulosin HCl [Flomax] 0.8 mg PO DAILY@1730 #60 capsule 11/20/15 Alpha Lipoic Acid 50 mg PO DAILY 05/09/17 Aps-Ii 2 tab PO DAILY 05/09/17 Famotidine [Pepcid] 40 mg PO DAILY 05/09/17 Goldenseal/Echinacea Purpurea 2 each PO DAILY 05/09/17 [Echinacea & Goldenseal Cap] [id number]-[id number] 1 - 2 tab PO DAILY 05/09/17 Metolazone [Zaroxolyn] 2.5 mg PO DAILY 05/09/17 Senna/Docusate Sodium [Senokot-S] 1 tablet PO DAILY 05/09/17 Spironolactone [Aldactone] 50 mg PO DAILY 05/09/17 Tolterodine Tartrate [Detrol LA] 4 mg PO DAILY 05/09/17 Ubidecarenone [Coq10] 100 mg PO BID 05/09/17 Warfarin [Coumadin ([facility])] 3 mg PO DAILY 05/09/17 Potassium Chloride [K-Dur] 20 meq PO DAILY 05/15/17 Simvastatin [Zocor] 20 mg PO QHS 05/15/17 Tree Pollen-Black [place] [Black 1 tab PO DAILY 05/15/17 [place] Pollen] - Family History Maternal No pertinent history, - - Not much is known about the patient's parents. They each lived to be approximately 85 years of age. The patient's father was known to suffer from obesity and a stroke. Smoking Status: Never smoker Tobacco Use: Non-smoker Review of Systems Constitutional: Denies: Chills, Fever, Weight Change Eyes: Denies: Pain, Vision Change HEENT: Denies: Difficulty Hearing, Difficulty Swallowing, Sinus Congestion Cardiovascular: Denies: Chest Pain, Palpitations Respiratory: Denies: Cough, Shortness of Breath Gastrointestinal: Denies: Diarrhea, Nausea, Vomiting Genitourinary: Denies: Dysuria, Hematuria Endocrine: Denies: Heat/ Cold Intolerance, Polydipsia, Polyuria Hematologic/ Lymphatic: Denies: Easy Bruising, Easy Bleeding - Physical Exam Vital Signs Temp Pulse Resp BP 97.3 F L 84 16 110/61 05/23/17 14:50 05/23/17 14:50 05/23/17 14:50 05/23/17 14:50 General: Alert, Oriented x3, Cooperative, No apparent distress, Well developed, Well nourished, Lethargic, - - Weak HEENT: Atraumatic, PERRLA, EOMI, Normocephalic Oral: Moist Mucosa Neck: No JVD Lungs: Normal air movement Abdomen: Non-Distended Extremities: No clubbing, No cyanosis Skin: No rashes, - - The ulceration of the right buttock remains superficial. It is much smaller in size, with evidence of peripheral epithelialization. There is a small amount of bioburden. There is no sign of infection or cellulitis. Dimensions are documented elsewhere. Wound Measurements and Assessment WC - Nurse 1 - General Ulcer Measurement Start: 05/23/17 14:50 Freq: Status: Active Protocol: Activity Type Activity Date Activity User E-Sign Co-Sign Detail Recorded Client Recorded Date Recorded By Document 05/23/17 14:50 [id number] 05/23/17 14:52 05/23/17 14:50 Wound Center Nurse 1 [Ulcer Assessment] #5- RT INNER BUTTOCK -Combined with other wound No -Current Size (cm) - Length 0.8 -Current Size (cm) - Width 0.3 -Current Size (cm) - Depth 0.2 -Total Square Cm 0.24 -Photo Taken No -Epithelialization Medium 34-66% -Tunneling No -Undermining/Tunneling No -Circular Undermining No -Exudate Amt Small (1-33%) -Exudate Type Serosanguineous -Wound Margin Flat & Intact -Granulation Amt Medium (34-66%) -Granulation Quality [place] -Slough/Fibrin Yes -Necrosis Amt Small (1-33%) -Necrotic Tissue Type Adherent Slough -Structure Exposed N/A -Texture (Dianne-wound Skin Appearance) Assessed Scarring -Moisture (Dianne-wound Skin Appearance Assessed ) Dry/Scaly -Color (Dianne-wound Skin Appearance) Assessed -Temperature (Dianne-wound Skin No Abnormality Appearance) (Pt Warm) -Tenderness on Palpation (Dianne-wound No Skin Appearance) -Ulcer Cleansing Rinsed/ Irrigated with Saline -Foul Odor after Cleansing No -Anesthetic Used 4% Lidocaine Solution [Edema Assessment] -Lower Limb Edema Present NA - Nurse 2 - General Ulcer CM Notes Start: 05/23/17 14:50 Freq: Status: Active Protocol: Activity Type Activity Date Activity User E-Sign Co-Sign Detail Recorded Client Recorded Date Recorded By Document 05/23/17 15:30 [id number] 05/23/17 15:39 05/23/17 15:30 Wound Center Nurse 2 [Procedure/Treatment] #5- RT INNER BUTTOCK -Time 15:30 -Correct Patient Yes -Correct Side, Site, Position Yes -Correct Procedure Yes -Procedure Performed Yes -Type of Procedure Debridement -Clinical Debridement Subcutaneous -Post Debridement Size (cm) - Length 0.8 -Post Debridement Size (cm) - Width 0.3 -Post Debridement Size (cm) - Depth 0.1 -Total Square Cm 0.24 -Wound/Ulcer Outcome Not Healed -Ulcer Cleansing Rinsed/ Irrigated with Saline -Foul Odor after Cleansing No -Bioengineered Tissue No -Topical Lidocaine (%) 4 -Lidocaine (ml) 5 -Bleeding Controlled with NA -Treatment Response Procedure Tolerated Well [See Physician Procedure note for Specifics] Pain Scale: 0-10 Numeric [Pain] -Is Patient Pain Free? Yes Musculoskeletal: Muscle Wasting Neurological: Cranial nerves II-XII grossly intact Psych/Mental Status: Normal Affect, Appropriate, Alert and oriented to time, place, person, mood and affect Debridement Note Post-Debridement Measurements/Treatment - Nurse 2 - General Ulcer CM Notes Start: 05/23/17 14:50 Freq: Status: Active Protocol: Activity Type Activity Date Activity User E-Sign Co-Sign Detail Recorded Client Recorded Date Recorded By Document 05/23/17 15:30 [id number] 05/23/17 15:39 05/23/17 15:30 Wound Center Nurse 2 #5- RT INNER BUTTOCK -Time 15:30 -Correct Patient Yes -Correct Side, Site, Position Yes -Correct Procedure Yes -Procedure Performed Yes -Type of Procedure Debridement -Clinical Debridement Subcutaneous -Post Debridement Size (cm) - Length 0.8 -Post Debridement Size (cm) - Width 0.3 -Post Debridement Size (cm) - Depth 0.1 -Total Square Cm 0.24 -Wound/Ulcer Outcome Not Healed -Ulcer Cleansing Rinsed/ Irrigated with Saline -Foul Odor after Cleansing No -Bioengineered Tissue No -Topical Lidocaine (%) 4 -Lidocaine (ml) 5 -Bleeding Controlled with NA -Treatment Response Procedure Tolerated Well Pain Scale: 0-10 Numeric Is Patient Pain Free? Yes Laterality: Right - Buttock Type of Debridement: Excisional debridement Anesthesia Used: 4% Lidocaine Solution Depth: Down to and including healthy tissue, in the subcutaneous layer Percentage of wound debrided: 100 Instrument Used: 5mm curette Severity: Fat Layer Exposed Amount of bleeding with debridement: Mild Bleeding Controlled with: Compression and gauze Patient tolerated procedure well Assessment/Plan Active Problems Pressure ulcer of buttock (Chronic) Physical deconditioning (Chronic) Assessment: This is a 77-year-old male who is severely deconditioned and nonambulatory. He spends long hours each day in a sitting position, and sleeps in a sitting position as well. He has developed an ulceration on the right buttock, which appears to be related to pressure phenomenon or shear/friction forces. It appears to be a stage II pressure ulceration. Patient has other existing medical conditions, which are documented elsewhere. There has been significant improvement in the status of the patient's right buttock ulceration since his initial visit, and since his most recent visit. It is now much smaller in size, with evidence of peripheral epithelialization. There is no sign of infection or cellulitis. Plan: Offloading measures are to be continued. The means by which this is to be accomplished have been described to the patient and his , who is his caregiver. He is to avoid prolonged sitting. Frequent repositioning has been recommended. Roho cushion is to be obtained. A Gelfoam mattress has been obtained. Unfortunately, according to the patient's , the patient has been less than totally compliant with offloading measures. Laboratory studies have been obtained, and reviewed. The patient appears to be adequately nourished, with a total protein and serum albumin which are normal. The patient's CBC is unremarkable. We are to continue collagen hydrogel topically on a daily basis. The patient and his have been advised to elevate his lower extremities as much as possible, continue with graduated compression stockings, and to continue with the use of mechanical compression pumps. Patient is to return in 1 week for reassessment. Adequate nutrition has been recommended. Appetite is said to be good. He is also said to be continent, and appropriate hygiene in the perianal area is recommended. We will attempt to procure a Roho cushion for offloading purposes. The patient is not a smoker. Influenza vaccine was not administered today. The patient was 225 pounds. He stands 5 feet 8 inches tall. His BMI is 34.2, which places him in a class I category. Weight loss has been recommended, and the patient has been advised to collaborate with his primary care physician in this regard.
--- NOTE | 2017-05-27 13:45 | WC ---
[facility] Patient has received his Gel Mattress; ROHO Wheelchair Cushion on Back-order. Mrs. Starr contacted. Also discussed home OT. Informed her Dr. Rodriguez did not order this, but it may have come from Dr. Bang in [place]. She will check with his office as well as [facility].
[2017-05-30 14:44] VITALS: BP 124/72; PULSE 82; RESP 18; TEMP 36
--- NOTE | 2017-05-30 15:52 | PCM.WC.HP ---
(1) Pressure ulcer of buttock Status: Chronic Current Visit: Yes Qualifiers: Pressure ulcer stage: stage 2 Laterality: right Qualified Code(s): L89.312 - Pressure ulcer of right buttock, stage 2 Code(s): L89.309 - Pressure ulcer of unspecified buttock, unspecified stage (2) Physical deconditioning Status: Chronic Current Visit: Yes Code(s): R53.81 - Other malaise (3) Sleep apnea Status: Chronic Current Visit: No Code(s): G47.30 - Sleep apnea, unspecified (4) Atrial fibrillation Status: Chronic Current Visit: No Code(s): I48.91 - Unspecified atrial fibrillation (5) Hypertension Status: Chronic Current Visit: No Code(s): I10 - Essential (primary) hypertension (6) Dementia Status: Chronic Current Visit: No Qualifiers: Dementia type: Alzheimer's disease Code(s): F03.90 - Unspecified dementia without behavioral disturbance (7) Alzheimer's disease Status: Chronic Current Visit: No Code(s): G30.9 - Alzheimer's disease, unspecified (8) Weakness Status: Chronic Current Visit: No Code(s): R53.1 - Weakness (9) Dependent edema Status: Chronic Current Visit: No Code(s): R60.9 - Edema, unspecified (10) History of stroke Status: Chronic Current Visit: No Code(s): Z86.73 - Personal history of transient ischemic attack (TIA), and cerebral infarction without residual deficits (11) H/O prosthetic mitral valve Status: Chronic Current Visit: No Code(s): Z95.2 - Presence of prosthetic heart valve (12) Renal insufficiency Status: Chronic Current Visit: No Code(s): N28.9 - Disorder of kidney and ureter, unspecified (13) Limited mobility Status: Chronic Current Visit: No Code(s): Z74.09 - Other reduced mobility (14) Hyperlipidemia Status: Chronic Current Visit: No Code(s): E78.5 - Hyperlipidemia, unspecified (15) CHF (congestive heart failure) Status: Chronic Current Visit: No Code(s): I50.9 - Heart failure, unspecified (16) Prostate cancer Status: Chronic Current Visit: No Code(s): C61 - Malignant neoplasm of prostate (17) History of endocarditis Status: Chronic Current Visit: No Code(s): Z86.79 - Personal history of other diseases of the circulatory system (18) Obesity Status: Chronic Current Visit: No Code(s): E66.9 - Obesity, unspecified (19) Swelling of lower extremity Status: Chronic Current Visit: No Code(s): M79.89 - Other specified soft tissue disorders (20) Edema of both legs Status: Chronic Current Visit: No Code(s): R60.0 - Localized edema History of Present Illness Date of Service: 05/30/17 Chief Complaint: Pressure ulceration of the right buttock, stage II History of Wound: This is a 77-year-old white male who presented with a chronic ulceration on the right buttock, which had been present for approximately 8 weeks. It appeared to represent a pressure ulceration. The patient is not ambulatory, and is physically deconditioned. He spends the preponderance of his day in a sitting position, and also sleeps in a sitting position as well. The patient lives at home with his . Family members assist the in caring for her . The patient's had been using collagen hydrogel topically. The patient has been known to have swelling in his lower extremities, for which he has been treated in the past. He currently wears compression stockings of 10-15 mmHg compression, on a daily basis. He also uses mechanical compression pumps as well. 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 His appetite is said to be good. He suffers from dementia and Alzheimer's disease. He is also obese. There has been significant improvement in the status of his right buttock ulceration since initially seen. The patient's ulceration has been diminishing in size, with evidence of increasing epithelialization. It is now completely healed. Past Medical History Past Medical History: Chronic Problems Pressure ulcer of buttock (Chronic) Physical deconditioning (Chronic) Sleep apnea (Chronic) Atrial fibrillation (Chronic) Hypertension (Chronic) Dementia (Chronic) Alzheimer's disease (Chronic) Weakness (Chronic) Lymphedema (Chronic) Ulcer of left lower leg (Chronic) Chronic venous insufficiency (Chronic) Dependent edema (Chronic) History of stroke (Chronic) H/O prosthetic mitral valve (Chronic) Renal insufficiency (Chronic) Limited mobility (Chronic) Hyperlipidemia (Chronic) CHF (congestive heart failure) (Chronic) Prostate cancer (Chronic) History of endocarditis (Chronic) Obesity (Chronic) Ulcer of right leg (Chronic) Swelling of lower extremity (Chronic) Edema of both legs (Chronic) Surgical History: cataract - Bilateral, herniorrhaphy - Inguinal hernia repair, tonsillectomy, - - Mitral valve replacement, 1993 Allergies/Adverse Reactions: Allergies atorvastatin calcium [From Lipitor] Adverse Reaction (Verified 05/15/17 19:49) Other Home Medications: Ambulatory Orders Medication Instructions Recorded Finasteride [Proscar] 5 mg PO DAILY #30 tablet 11/20/15 Memantine Hydrochloride [Namenda] 10 mg PO BID #60 tablet 11/20/15 Metoprolol Tartrate [Lopressor 25 mg PO BID #60 tablet 11/20/15 (beta jeffery)] Tamsulosin HCl [Flomax] 0.8 mg PO DAILY@1730 #60 capsule 11/20/15 Alpha Lipoic Acid 50 mg PO DAILY 05/09/17 Aps-Ii 2 tab PO DAILY 05/09/17 Famotidine [Pepcid] 40 mg PO DAILY 05/09/17 Goldenseal/Echinacea Purpurea 2 each PO DAILY 05/09/17 [Echinacea & Goldenseal Cap] [id number]-[id number] 1 - 2 tab PO DAILY 05/09/17 Metolazone [Zaroxolyn] 2.5 mg PO DAILY 05/09/17 Senna/Docusate Sodium [Senokot-S] 1 tablet PO DAILY 05/09/17 Spironolactone [Aldactone] 50 mg PO DAILY 05/09/17 Tolterodine Tartrate [Detrol LA] 4 mg PO DAILY 05/09/17 Ubidecarenone [Coq10] 100 mg PO BID 05/09/17 Warfarin [Coumadin ([facility])] 3 mg PO DAILY 05/09/17 Potassium Chloride [K-Dur] 20 meq PO DAILY 05/15/17 Simvastatin [Zocor] 20 mg PO QHS 05/15/17 Tree Pollen-Black [place] [Black 1 tab PO DAILY 05/15/17 [place] Pollen] - Family History Maternal No pertinent history, - - Not much is known about the patient's parents. They each lived to be approximately 85 years of age. The patient's father was known to suffer from obesity and a stroke. Smoking Status: Never smoker Tobacco Use: Non-smoker Review of Systems Constitutional: Denies: Chills, Fever, Weight Change Eyes: Denies: Pain, Vision Change HEENT: Denies: Difficulty Hearing, Difficulty Swallowing, Sinus Congestion Cardiovascular: Denies: Chest Pain, Palpitations Respiratory: Denies: Cough, Shortness of Breath Gastrointestinal: Denies: Diarrhea, Nausea, Vomiting Genitourinary: Denies: Dysuria, Hematuria Endocrine: Denies: Heat/ Cold Intolerance, Polydipsia, Polyuria Hematologic/ Lymphatic: Denies: Easy Bruising, Easy Bleeding - Physical Exam Vital Signs Temp Pulse Resp BP 96.8 F L 82 18 124/72 H 05/30/17 14:44 05/30/17 14:44 05/30/17 14:44 05/30/17 14:44 General: Alert, Oriented x3, Cooperative, No apparent distress, Well developed, Well nourished HEENT: Atraumatic, PERRLA, EOMI, Normocephalic Oral: Moist Mucosa Neck: No JVD Lungs: Normal air movement Abdomen: Non-Distended Extremities: No clubbing, No cyanosis, No edema Skin: - - Patient's right buttock ulceration is now completely healed and epithelialized. There is no sign of infection or cellulitis. Wound Measurements and Assessment WC - Nurse 1 - General Ulcer Measurement Start: 05/23/17 14:50 Freq: Status: Active Protocol: Activity Type Activity Date Activity User E-Sign Co-Sign Detail Recorded Client Recorded Date Recorded By Document 05/30/17 14:44 [id number] 05/30/17 14:47 05/30/17 14:44 Wound Center Nurse 1 [Ulcer Assessment] #5- RT INNER BUTTOCK -Combined with other wound No -Current Size (cm) - Length 0.1 -Current Size (cm) - Width 0.1 -Current Size (cm) - Depth 0.1 -Total Square Cm 0.01 -Date of Last Picture (Recall this 05/30/17 field) -Photo Taken Yes -Epithelialization Large 67-100% -Tunneling No -Undermining/Tunneling No -Circular Undermining No -Classification - Thickness Full Thickness without Exposed Support Structure -Exudate Amt None Present (0 %) -Wound Margin Distinct, Outline Attached -Granulation Amt Large (67-100%) -Granulation Quality [place] -Slough/Fibrin No -Necrosis Amt None Present (0 %) -Structure Exposed None/Limited to Skin Breakdown -Texture (Dianne-wound Skin Appearance) Scarring -Moisture (Dianne-wound Skin Appearance Dry/Scaly ) -Temperature (Dianne-wound Skin No Abnormality Appearance) (Pt Warm) -Tenderness on Palpation (Dianne-wound No Skin Appearance) -Ulcer Cleansing Rinsed/ Irrigated with Saline -Foul Odor after Cleansing No -Anesthetic Used 4% Lidocaine Solution [Edema Assessment] -Lower Limb Edema Present No WC - Nurse 2 - General Ulcer CM Notes Start: 05/23/17 14:50 Freq: Status: Active Protocol: Activity Type Activity Date Activity User E-Sign Co-Sign Detail Recorded Client Recorded Date Recorded By Document 05/30/17 15:33 [email or web address] 05/30/17 15:34 05/30/17 15:33 Wound Center Nurse 2 [Procedure/Treatment] #5- RT INNER BUTTOCK -Time 15:33 -Correct Patient Yes -Correct Side, Site, Position Yes -Correct Procedure Yes -Ulcer Cleansing Rinsed/ Irrigated with Saline -Foul Odor after Cleansing No -Bioengineered Tissue No -Topical Lidocaine (%) 4 -Injectable Lidocaine (%) 5 -Bleeding Controlled with NA -Treatment Response Procedure Tolerated Well [See Physician Procedure note for Specifics] Pain Scale: 0-10 Numeric [Pain] -Is Patient Pain Free? Yes Neurological: Cranial nerves II-XII grossly intact, Neuro grossly intact Psych/Mental Status: Normal Affect, Appropriate, Alert and oriented to time, place, person, mood and affect Debridement Note Post-Debridement Measurements/Treatment - Nurse 2 - General Ulcer CM Notes Start: 05/23/17 14:50 Freq: Status: Active Protocol: Activity Type Activity Date Activity User E-Sign Co-Sign Detail Recorded Client Recorded Date Recorded By Document 05/23/17 15:30 [id number] 05/23/17 15:39 JS Document 05/30/17 15:33 [id number] 05/30/17 15:34 05/23/17 05/30/17 15:30 15:33 Wound Center Nurse 2 #5- RT INNER BUTTOCK -Time 15:30 15:33 -Correct Patient Yes Yes -Correct Side, Site, Position Yes Yes -Correct Procedure Yes Yes -Procedure Performed Yes -Type of Procedure Debridement -Clinical Debridement Subcutaneous -Post Debridement Size (cm) - Length 0.8 -Post Debridement Size (cm) - Width 0.3 -Post Debridement Size (cm) - Depth 0.1 -Total Square Cm 0.24 -Wound/Ulcer Outcome Not Healed -Ulcer Cleansing Rinsed/ Rinsed/ Irrigated with Irrigated with Saline Saline -Foul Odor after Cleansing No No -Bioengineered Tissue No No -Topical Lidocaine (%) 4 4 -Injectable Lidocaine (%) 5 -Lidocaine (ml) 5 -Bleeding Controlled with NA NA -Treatment Response Procedure Procedure Tolerated Well Tolerated Well Pain Scale: 0-10 Numeric Is Patient Pain Free? Yes Yes No debridement was completed today Assessment/Plan Active Problems Pressure ulcer of buttock (Chronic) Physical deconditioning (Chronic) Assessment: This is a 77-year-old male who is severely deconditioned and nonambulatory. He spends long hours each day in a sitting position, and sleeps in a sitting position as well. He developed an ulceration on the right buttock, which appears to be related to pressure phenomenon or shear/friction forces. It appears to be a stage II pressure ulceration. Patient has other existing medical conditions, which are documented elsewhere. There has been significant improvement in the status of the patient's right buttock ulceration since his initial visit, and since his most recent visit. It is now completely healed. There is no sign of infection or cellulitis. Plan: Offloading measures are to be continued. The means by which this is to be accomplished have been described to the patient and his , who is his caregiver. He is to avoid prolonged sitting. Frequent repositioning has been recommended. Roho cushion is to be obtained. A Gelfoam mattress has been obtained. Laboratory studies have been obtained, and reviewed. The patient appears to be adequately nourished, with a total protein and serum albumin which are normal. The patient's CBC is unremarkable. The patient will now be discharged, as his right buttock ulceration is completely healed and epithelialized. The patient and his have been advised to elevate his lower extremities as much as possible, continue with graduated compression stockings, and to continue with the use of mechanical compression pumps. Adequate nutrition has been recommended. Patient will follow-up as needed. The patient is not a smoker. Influenza vaccine was not administered today. The patient was 225 pounds. He stands 5 feet 8 inches tall. His BMI is 34.2, which places him in a class I category. Weight loss has been recommended, and the patient has been advised to collaborate with his primary care physician in this regard.
--- NOTE | 2017-05-30 15:57 | HP.PCM_ITS ---
(1) Pressure ulcer of buttock Status: Chronic Current Visit: Yes Qualifiers: Pressure ulcer stage: stage 2 Laterality: right Qualified Code(s): L89.312 - Pressure ulcer of right buttock, stage 2 Code(s): L89.309 - Pressure ulcer of unspecified buttock, unspecified stage (2) Physical deconditioning Status: Chronic Current Visit: Yes Code(s): R53.81 - Other malaise (3) Sleep apnea Status: Chronic Current Visit: No Code(s): G47.30 - Sleep apnea, unspecified (4) Atrial fibrillation Status: Chronic Current Visit: No Code(s): I48.91 - Unspecified atrial fibrillation (5) Hypertension Status: Chronic Current Visit: No Code(s): I10 - Essential (primary) hypertension (6) Dementia Status: Chronic Current Visit: No Qualifiers: Dementia type: Alzheimer's disease Code(s): F03.90 - Unspecified dementia without behavioral disturbance (7) Alzheimer's disease Status: Chronic Current Visit: No Code(s): G30.9 - Alzheimer's disease, unspecified (8) Weakness Status: Chronic Current Visit: No Code(s): R53.1 - Weakness (9) Dependent edema Status: Chronic Current Visit: No Code(s): R60.9 - Edema, unspecified (10) History of stroke Status: Chronic Current Visit: No Code(s): Z86.73 - Personal history of transient ischemic attack (TIA), and cerebral infarction without residual deficits (11) H/O prosthetic mitral valve Status: Chronic Current Visit: No Code(s): Z95.2 - Presence of prosthetic heart valve (12) Renal insufficiency Status: Chronic Current Visit: No Code(s): N28.9 - Disorder of kidney and ureter, unspecified (13) Limited mobility Status: Chronic Current Visit: No Code(s): Z74.09 - Other reduced mobility (14) Hyperlipidemia Status: Chronic Current Visit: No Code(s): E78.5 - Hyperlipidemia, unspecified (15) CHF (congestive heart failure) Status: Chronic Current Visit: No Code(s): I50.9 - Heart failure, unspecified (16) Prostate cancer Status: Chronic Current Visit: No Code(s): C61 - Malignant neoplasm of prostate (17) History of endocarditis Status: Chronic Current Visit: No Code(s): Z86.79 - Personal history of other diseases of the circulatory system (18) Obesity Status: Chronic Current Visit: No Code(s): E66.9 - Obesity, unspecified (19) Swelling of lower extremity Status: Chronic Current Visit: No Code(s): M79.89 - Other specified soft tissue disorders (20) Edema of both legs Status: Chronic Current Visit: No Code(s): R60.0 - Localized edema History of Present Illness Date of Service: 05/30/17 Chief Complaint: Pressure ulceration of the right buttock, stage II History of Wound: This is a 77-year-old white male who presented with a chronic ulceration on the right buttock, which had been present for approximately 8 weeks. It appeared to represent a pressure ulceration. The patient is not ambulatory, and is physically deconditioned. He spends the preponderance of his day in a sitting position, and also sleeps in a sitting position as well. The patient lives at home with his . Family members assist the in caring for her . The patient's had been using collagen hydrogel topically. The patient has been known to have swelling in his lower extremities , for which he has been treated in the past. He currently wears compression stockings of 10-15 mmHg compression, on a daily basis. He also uses mechanical compression pumps as well. 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 His appetite is said to be good. He suffers from dementia and Alzheimer's disease. He is also obese. There has been significant improvement in the status of his right buttock ulceration since initially seen. The patient's ulceration has been diminishing in size, with evidence of increasing epithelialization. It is now completely healed. Past Medical History Past Medical History: Chronic Problems Pressure ulcer of buttock (Chronic) Physical deconditioning (Chronic) Sleep apnea (Chronic) Atrial fibrillation (Chronic) Hypertension (Chronic) Dementia (Chronic) Alzheimer's disease (Chronic) Weakness (Chronic) Lymphedema (Chronic) Ulcer of left lower leg (Chronic) Chronic venous insufficiency (Chronic) Dependent edema (Chronic) History of stroke (Chronic) H/O prosthetic mitral valve (Chronic) Renal insufficiency (Chronic) Limited mobility (Chronic) Hyperlipidemia (Chronic) CHF (congestive heart failure) (Chronic) Prostate cancer (Chronic) History of endocarditis (Chronic) Obesity (Chronic) Ulcer of right leg (Chronic) Swelling of lower extremity (Chronic) Edema of both legs (Chronic) Surgical History: cataract - Bilateral, herniorrhaphy - Inguinal hernia repair, tonsillectomy, - - Mitral valve replacement, 1993 Allergies/Adverse Reactions: Allergies atorvastatin calcium [From Lipitor] Adverse Reaction (Verified 05/15/17 19:49) Other Home Medications: Ambulatory Orders Medication Instructions Recorded Finasteride [Proscar] 5 mg PO DAILY #30 tablet 11/20/15 Memantine Hydrochloride [Namenda] 10 mg PO BID #60 tablet 11/20/15 Metoprolol Tartrate [Lopressor 25 mg PO BID #60 tablet 11/20/15 (beta jeffery)] Tamsulosin HCl [Flomax] 0.8 mg PO DAILY@1730 #60 capsule 11/20/15 Alpha Lipoic Acid 50 mg PO DAILY 05/09/17 Aps-Ii 2 tab PO DAILY 05/09/17 Famotidine [Pepcid] 40 mg PO DAILY 05/09/17 Goldenseal/Echinacea Purpurea 2 each PO DAILY 05/09/17 [Echinacea & Goldenseal Cap] Ytshaf-1-Lgfdnjnl 1 - 2 tab PO DAILY 05/09/17 Metolazone [Zaroxolyn] 2.5 mg PO DAILY 05/09/17 Senna/Docusate Sodium [Senokot-S] 1 tablet PO DAILY 05/09/17 Spironolactone [Aldactone] 50 mg PO DAILY 05/09/17 Tolterodine Tartrate [Detrol LA] 4 mg PO DAILY 05/09/17 Ubidecarenone [Coq10] 100 mg PO BID 05/09/17 Warfarin [Coumadin ([facility])] 3 mg PO DAILY 05/09/17 Potassium Chloride [K-Dur] 20 meq PO DAILY 05/15/17 Simvastatin [Zocor] 20 mg PO QHS 05/15/17 Tree Pollen-Black [place] [Black 1 tab PO DAILY 05/15/17 [place] Pollen] - Family History Maternal No pertinent history, - - Not much is known about the patient's parents. They each lived to be approximately 85 years of age. The patient's father was known to suffer from obesity and a stroke. Smoking Status: Never smoker Tobacco Use: Non-smoker Review of Systems Constitutional: Denies: Chills, Fever, Weight Change Eyes: Denies: Pain, Vision Change HEENT: Denies: Difficulty Hearing, Difficulty Swallowing, Sinus Congestion Cardiovascular: Denies: Chest Pain, Palpitations Respiratory: Denies: Cough, Shortness of Breath Gastrointestinal: Denies: Diarrhea, Nausea, Vomiting Genitourinary: Denies: Dysuria, Hematuria Endocrine: Denies: Heat/ Cold Intolerance, Polydipsia, Polyuria Hematologic/ Lymphatic: Denies: Easy Bruising, Easy Bleeding - Physical Exam Vital Signs Temp Pulse Resp BP 96.8 F L 82 18 124/72 H 05/30/17 14:44 05/30/17 14:44 05/30/17 14:44 05/30/17 14:44 General: Alert, Oriented x3, Cooperative, No apparent distress, Well developed, Well nourished HEENT: Atraumatic, PERRLA, EOMI, Normocephalic Oral: Moist Mucosa Neck: No JVD Lungs: Normal air movement Abdomen: Non-Distended Extremities: No clubbing, No cyanosis, No edema Skin: - - Patient's right buttock ulceration is now completely healed and epithelialized. There is no sign of infection or cellulitis. Wound Measurements and Assessment WC - Nurse 1 - General Ulcer Measurement Start: 05/23/17 14:50 Freq: Status: Active Protocol: Activity Type Activity Date Activity User E-Sign Co-Sign Detail Recorded Client Recorded Date Recorded By Document 05/30/17 14:44 [id number] 05/30/17 14:47 05/30/17 14:44 Wound Center Nurse 1 [Ulcer Assessment] #5- RT INNER BUTTOCK -Combined with other wound No -Current Size (cm) - Length 0.1 -Current Size (cm) - Width 0.1 -Current Size (cm) - Depth 0.1 -Total Square Cm 0.01 -Date of Last Picture (Recall this 05/30/17 field) -Photo Taken Yes -Epithelialization Large 67-100% -Tunneling No -Undermining/Tunneling No -Circular Undermining No -Classification - Thickness Full Thickness without Exposed Support Structure -Exudate Amt None Present (0 %) -Wound Margin Distinct, Outline Attached -Granulation Amt Large (67-100%) -Granulation Quality [place] -Slough/Fibrin No -Necrosis Amt None Present (0 %) -Structure Exposed None/Limited to Skin Breakdown -Texture (Dianne-wound Skin Appearance) Scarring -Moisture (Dianne-wound Skin Appearance Dry/Scaly ) -Temperature (Dianne-wound Skin No Abnormality Appearance) (Pt Warm) -Tenderness on Palpation (Dianne-wound No Skin Appearance) -Ulcer Cleansing Rinsed/ Irrigated with Saline -Foul Odor after Cleansing No -Anesthetic Used 4% Lidocaine Solution [Edema Assessment] -Lower Limb Edema Present No WC - Nurse 2 - General Ulcer CM Notes Start: 05/23/17 14:50 Freq: Status: Active Protocol: Activity Type Activity Date Activity User E-Sign Co-Sign Detail Recorded Client Recorded Date Recorded By Document 05/30/17 15:33 [id number] 05/30/17 15:34 05/30/17 15:33 Wound Center Nurse 2 [Procedure/Treatment] #5- RT INNER BUTTOCK -Time 15:33 -Correct Patient Yes -Correct Side, Site, Position Yes -Correct Procedure Yes -Ulcer Cleansing Rinsed/ Irrigated with Saline -Foul Odor after Cleansing No -Bioengineered Tissue No -Topical Lidocaine (%) 4 -Injectable Lidocaine (%) 5 -Bleeding Controlled with NA -Treatment Response Procedure Tolerated Well [See Physician Procedure note for Specifics] Pain Scale: 0-10 Numeric [Pain] -Is Patient Pain Free? Yes Neurological: Cranial nerves II-XII grossly intact, Neuro grossly intact Psych/Mental Status: Normal Affect, Appropriate, Alert and oriented to time, place, person, mood and affect Debridement Note Post-Debridement Measurements/Treatment - Nurse 2 - General Ulcer CM Notes Start: 05/23/17 14:50 Freq: Status: Active Protocol: Activity Type Activity Date Activity User E-Sign Co-Sign Detail Recorded Client Recorded Date Recorded By Document 05/23/17 15:30 [id number] 05/23/17 15:39 JS Document 05/30/17 15:33 [id number] 05/30/17 15:34 05/23/17 05/30/17 15:30 15:33 Wound Center Nurse 2 #5- RT INNER BUTTOCK -Time 15:30 15:33 -Correct Patient Yes Yes -Correct Side, Site, Position Yes Yes -Correct Procedure Yes Yes -Procedure Performed Yes -Type of Procedure Debridement -Clinical Debridement Subcutaneous -Post Debridement Size (cm) - Length 0.8 -Post Debridement Size (cm) - Width 0.3 -Post Debridement Size (cm) - Depth 0.1 -Total Square Cm 0.24 -Wound/Ulcer Outcome Not Healed -Ulcer Cleansing Rinsed/ Rinsed/ Irrigated with Irrigated with Saline Saline -Foul Odor after Cleansing No No -Bioengineered Tissue No No -Topical Lidocaine (%) 4 4 -Injectable Lidocaine (%) 5 -Lidocaine (ml) 5 -Bleeding Controlled with NA NA -Treatment Response Procedure Procedure Tolerated Well Tolerated Well Pain Scale: 0-10 Numeric Is Patient Pain Free? Yes Yes No debridement was completed today Assessment/Plan Active Problems Pressure ulcer of buttock (Chronic) Physical deconditioning (Chronic) Assessment: This is a 77-year-old male who is severely deconditioned and nonambulatory. He spends long hours each day in a sitting position, and sleeps in a sitting position as well. He developed an ulceration on the right buttock , which appears to be related to pressure phenomenon or shear/friction forces. It appears to be a stage II pressure ulceration. Patient has other existing medical conditions, which are documented elsewhere. There has been significant improvement in the status of the patient's right buttock ulceration since his initial visit, and since his most recent visit. It is now completely healed. There is no sign of infection or cellulitis. Plan: Offloading measures are to be continued. The means by which this is to be accomplished have been described to the patient and his , who is his caregiver. He is to avoid prolonged sitting. Frequent repositioning has been recommended. Roho cushion is to be obtained. A Gelfoam mattress has been obtained. Laboratory studies have been obtained, and reviewed. The patient appears to be adequately nourished, with a total protein and serum albumin which are normal. The patient's CBC is unremarkable. The patient will now be discharged, as his right buttock ulceration is completely healed and epithelialized. The patient and his have been advised to elevate his lower extremities as much as possible, continue with graduated compression stockings, and to continue with the use of mechanical compression pumps. Adequate nutrition has been recommended. Patient will follow-up as needed. The patient is not a smoker. Influenza vaccine was not administered today. The patient was 225 pounds. He stands 5 feet 8 inches tall. His BMI is 34.2, which places him in a class I category. Weight loss has been recommended, and the patient has been advised to collaborate with his primary care physician in this regard.
== END 2017-06-18 23:59 ==
LOC: WC 14:30
PROVIDERS: Family Provider Family Medicine; PCP Family Medicine; Visit Provider Surgery
DX: L89.312 Pressure ulcer of right buttock, stage 2 (principal); G47.30 Sleep apnea, unspecified; I48.2 Chronic atrial fibrillation; G30.9 Alzheimer's disease, unspecified; F02.80 Dementia in other diseases classified elsewhere, unspecified severity, without behavioral disturbance, psychotic disturbance, mood disturbance, and anxiety; Z86.73 Personal history of transient ischemic attack (TIA), and cerebral infarction without residual deficits; R60.0 Localized edema; C61 Malignant neoplasm of prostate; E78.5 Hyperlipidemia, unspecified; I50.9 Heart failure, unspecified; I12.9 Hypertensive chronic kidney disease with stage 1 through stage 4 chronic kidney disease, or unspecified chronic kidney disease; Z95.2 Presence of prosthetic heart valve; Z79.899 Other long term (current) drug therapy; Z79.01 Long term (current) use of anticoagulants; E66.9 Obesity, unspecified; Z68.34 Body mass index [BMI] 34.0-34.9, adult
CPT/HCPCS: 11042; 99211; G0463

== ENCOUNTER 2017-08-20 22:16 | Emergency (ER) | payer MEDICARE, SELFPAY ==
[2017-08-20 22:19] VITALS: BP 108/73; PULSE 72; RESP 16; TEMP 36.6; O2SAT 97; BMI 30.5
--- NOTE | 2017-08-20 22:44 | ED.RN ---
pt does not have med list with them
--- NOTE | 2017-08-20 23:05 | ED.VISSUMM ---
- ER Visit Summary Date of Service: 08/20/17 Chief Complaint: Left leg pain and open wound History of Present Illness: The patient is a 77 M with a history of chronic venous stasis changes of his lower legs. He does have a history of nonhealing wounds which he needed to follow with the wound care center for. Over the past 4 days he has had some mild pain over the anterior lower leg and they have noticed a large blister there. He complains of burning pain which he rates as 4 out of 10. He is otherwise without complaint. He denies chest pain shortness of breath fevers vomiting. Physical Examination: Afebrile vitals are normal Moist mucous membranes Heart regular Lungs clear There is a bullae over the left anterior lower leg with clear drainage he has chronic venous stasis changes but he does not appear to have any cellulitic changes this is not hot to the touch there is no lymphangitic streaking there is no fluctuance or purulent drainage Test Results: Not indicated Emergency Department Course and Treatment: The patient presents with a wound over the left anterior lower leg. He will be placed on Keflex empirically and a wound culture was obtained. He was advised to call on Tuesday for follow-up with wound care. He was also advised to follow-up with his primary care physician. He does not have any evidence of acute congestive heart failure. was concerned that he was retaining fluid. However his edema is approximately baseline and he has no other symptoms such as shortness of breath chest pain he is not hypoxic he is not hypertensive. His lungs are clear to auscultation. I do not believe any further emergent workup is indicated. He understands to return for new or worsening symptoms was instructed on specific signs and symptoms to monitor for and he was discharged. Treatment Plan: [] Disposition: Discharge Impression: Wound left leg This note was generated with [employer] dictation software. It may contain incorrect words, spelling, and punctuation that were not noted in review of the chart prior to signing ED Disposition - Plan for ED Patient: Chief Complaint: Wound Referrals: Coleman Bang MD [Primary Care Provider] -
--- NOTE | 2017-08-20 23:08 | ED.DEP ---
ED Disposition - Plan for ED Patient: Chief Complaint: Wound Prescriptions: Cephalexin [Keflex] 500 mg PO Q6 #40 cap Referrals: Coleman Bang MD [Primary Care Provider] - Clinic,Wound [None] - Additional Instructions: You have a wound on your left leg. Cultures were obtained. Take antibiotics as prescribed. Return for new or worsening symptoms including worsening pain fevers or worsening of wound. Follow-up with wound care and your primary care doctor.
== END 2017-08-20 23:26 | disposition home or self-care (01) ==
LOC: ED 23:25
PROVIDERS: Emergency Provider Emergency Medicine; Family Provider Family Medicine; PCP Family Medicine
DX: S81.802A Unspecified open wound, left lower leg, initial encounter (principal); I87.8 Other specified disorders of veins; R23.8 Other skin changes; G47.33 Obstructive sleep apnea (adult) (pediatric); Z86.73 Personal history of transient ischemic attack (TIA), and cerebral infarction without residual deficits; X58.XXXA Exposure to other specified factors, initial encounter; Y93.9 Activity, unspecified; Y92.89 Other specified places as the place of occurrence of the external cause; Y99.8 Other external cause status
CPT/HCPCS: 87070; 87077; 87186; 87205; 99282

== ENCOUNTER 2017-09-09 15:00 | Outpatient (RCR) | payer MEDICARE, SELFPAY ==
[2017-09-02 15:43] VITALS: BP 115/79; PULSE 82; RESP 16; TEMP 36.6
--- NOTE | 2017-09-02 22:15 | PN.PCM_ITS ---
(1) Lymphedema Status: Chronic Current Visit: Yes Code(s): I89.0 - Lymphedema, not elsewhere classified (2) Ulcer of left lower leg Status: Chronic Current Visit: Yes Qualifiers: Non-pressure ulcer stage: with fat layer exposed Qualified Code(s): L97.922 - Non-pressure chronic ulcer of unspecified part of left lower leg with fat layer exposed Code(s): L97.929 - Non-pressure chronic ulcer of unspecified part of left lower leg with unspecified severity (3) Obesity Status: Chronic Current Visit: Yes Qualifiers: Obesity type: due to excess calories Code(s): E66.9 - Obesity, unspecified (4) Ulcer of right leg Status: Chronic Current Visit: Yes Qualifiers: Non-pressure ulcer stage: with fat layer exposed Qualified Code(s): L97.912 - Non-pressure chronic ulcer of unspecified part of right lower leg with fat layer exposed Code(s): L97.919 - Non-pressure chronic ulcer of unspecified part of right lower leg with unspecified severity Type of Wound Date of Service: 09/02/17 Chief Complaint: Pressure ulceration of the right buttock, stage II History of Wound: This is a 77-year-old white male who presented with venous ulcers to his lower extremities bilaterally which began several weeks ago. His was applying adaptic to these and he wasn't wearing his compression appropriately. The patient is not ambulatory, and is physically deconditioned. He spends the preponderance of his day in a sitting position, and also sleeps in a sitting position as well. The patient lives at home with his . Family members assist the in caring for her . The patient's had been using collagen hydrogel topically. The patient has been known to have swelling in his lower extremities, for which he has been treated in the past. He currently wears compression stockings of 10-15 mmHg compression, on a daily basis. He also uses mechanical compression pumps as well. 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 His appetite is said to be good. He suffers from dementia and Alzheimer's disease. He is also obese. Progress of Wound: Garrett's wounds have improved and he is tolerating surepress well. Will continue to use silvercel. He has been using compression pumps as well and tolerating these. He has not had any increased drainage, odor or pain. - Physical Exam Vital Signs Temp Pulse Resp BP 97.8 F 82 16 115/79 09/02/17 15:43 09/02/17 15:43 09/02/17 15:43 09/02/17 15:43 General: Alert, Oriented x3, Cooperative, No apparent distress HEENT: Atraumatic, Normocephalic Oral: Moist Mucosa Extremities: Edema Skin: Ulcer/ Wound Wound Measurements and Assessment WC - Nurse 1 - General Ulcer Measurement Start: 09/02/17 15:43 Freq: Status: Active Protocol: Activity Type Activity Date Activity User E-Sign Co-Sign Detail Recorded Client Recorded Date Recorded By Document 09/02/17 15:43 [facility] [id number] 09/02/17 15:57 [facility] 09/02/17 15:43 Wound Center Nurse 1 [Ulcer Assessment] #7- RT LAT LOWER LEG -Combined with other wound No -Current Size (cm) - Length 1.1 -Current Size (cm) - Width 0.5 -Current Size (cm) - Depth 0.1 -Total Square Cm 0.55 -Photo Taken No -Epithelialization None Present -Tunneling No -Undermining/Tunneling No -Circular Undermining No -Exudate Amt None Present (0 %) -Wound Margin Distinct, Outline Attached -Granulation Amt None Present (0 %) -Slough/Fibrin Yes -Necrosis Amt Large (67-100%) -Necrotic Tissue Type Eschar -Structure Exposed N/A -Texture (Dianne-wound Skin Appearance) Scarring -Moisture (Dianne-wound Skin Appearance Dry/Scaly ) -Color (Dianne-wound Skin Appearance) Hemosiderin Staining -Temperature (Dianne-wound Skin No Abnormality Appearance) (Pt Warm) -Tenderness on Palpation (Dianne-wound No Skin Appearance) -Ulcer Cleansing Rinsed/ Irrigated with Saline -Foul Odor after Cleansing No -Anesthetic Used 4% Lidocaine Solution #6- LT MEDIAL HYLTON -Combined with other wound No -Current Size (cm) - Length 3.6 -Current Size (cm) - Width 0.9 -Current Size (cm) - Depth 0.1 -Total Square Cm 3.24 -Photo Taken No -Epithelialization Small 1-33% -Tunneling No -Undermining/Tunneling No -Circular Undermining No -Exudate Amt Small (1-33%) -Exudate Type Serous -Wound Margin Distinct, Outline Attached -Granulation Amt Large (67-100%) -Granulation Quality Red -Slough/Fibrin No -Necrosis Amt None Present (0 %) -Structure Exposed None/Limited to Skin Breakdown -Texture (Dianne-wound Skin Appearance) Scarring -Moisture (Dianne-wound Skin Appearance Dry/Scaly ) -Color (Dianne-wound Skin Appearance) Assessed Hemosiderin Staining -Temperature (Dianne-wound Skin No Abnormality Appearance) (Pt Warm) -Tenderness on Palpation (Dianne-wound No Skin Appearance) -Ulcer Cleansing Rinsed/ Irrigated with Saline -Foul Odor after Cleansing No -Anesthetic Used 4% Lidocaine Solution [Edema Assessment] -Lower Limb Edema Present Yes -Right Calf (cm) 36.9 -Right Ankle (cm) 24.9 -Left Calf (cm) 38.5 -Left Ankle (cm) 24.4 WC - Nurse 2 - General Ulcer CM Notes Start: 09/02/17 15:43 Freq: Status: Active Protocol: Activity Type Activity Date Activity User E-Sign Co-Sign Detail Recorded Client Recorded Date Recorded By Document 09/02/17 16:29 DV [id number] 09/02/17 16:36 DV 09/02/17 16:29 Wound Center Nurse 2 [Procedure/Treatment] #7- RT LAT LOWER LEG -Time 16:30 -Correct Patient Yes -Correct Side, Site, Position Yes -Correct Procedure Yes -Procedure Performed Yes -Type of Procedure Debridement -Clinical Debridement Subcutaneous -Post Debridement Size (cm) - Length 0.8 -Post Debridement Size (cm) - Width 0.5 -Post Debridement Size (cm) - Depth 0.1 -Total Square Cm 0.40 -Wound/Ulcer Outcome Not Healed -Ulcer Cleansing Rinsed/ Irrigated with Saline -Foul Odor after Cleansing No -Bioengineered Tissue No -Bleeding Controlled with NA -Treatment Response Procedure Tolerated Well #6- LT MEDIAL HYLTON -Time 16:31 -Correct Patient Yes -Correct Side, Site, Position Yes -Correct Procedure Yes -Procedure Performed Yes -Type of Procedure Debridement -Clinical Debridement Subcutaneous -Post Debridement Size (cm) - Length 5.5 -Post Debridement Size (cm) - Width 3.1 -Post Debridement Size (cm) - Depth 0.1 -Total Square Cm 17.05 -Wound/Ulcer Outcome Not Healed -Ulcer Cleansing Rinsed/ Irrigated with Saline -Foul Odor after Cleansing No -Bioengineered Tissue No -Bleeding Controlled with Pressure -Treatment Response Procedure Tolerated Well [See Physician Procedure note for Specifics] Pain Scale: 0-10 Numeric [Pain] -Is Patient Pain Free? Yes Psych/Mental Status: Normal Affect, Appropriate Debridement Note Post-Debridement Measurements/Treatment WC - Nurse 2 - General Ulcer CM Notes Start: 09/02/17 15:43 Freq: Status: Active Protocol: Activity Type Activity Date Activity User E-Sign Co-Sign Detail Recorded Client Recorded Date Recorded By Document 09/02/17 16:29 DV [id number] 09/02/17 16:36 DV 09/02/17 16:29 Wound Center Nurse 2 #7- RT LAT LOWER LEG -Time 16:30 -Correct Patient Yes -Correct Side, Site, Position Yes -Correct Procedure Yes -Procedure Performed Yes -Type of Procedure Debridement -Clinical Debridement Subcutaneous -Post Debridement Size (cm) - Length 0.8 -Post Debridement Size (cm) - Width 0.5 -Post Debridement Size (cm) - Depth 0.1 -Total Square Cm 0.40 -Wound/Ulcer Outcome Not Healed -Ulcer Cleansing Rinsed/ Irrigated with Saline -Foul Odor after Cleansing No -Bioengineered Tissue No -Bleeding Controlled with NA -Treatment Response Procedure Tolerated Well #6- LT MEDIAL HYLTON -Time 16:31 -Correct Patient Yes -Correct Side, Site, Position Yes -Correct Procedure Yes -Procedure Performed Yes -Type of Procedure Debridement -Clinical Debridement Subcutaneous -Post Debridement Size (cm) - Length 5.5 -Post Debridement Size (cm) - Width 3.1 -Post Debridement Size (cm) - Depth 0.1 -Total Square Cm 17.05 -Wound/Ulcer Outcome Not Healed -Ulcer Cleansing Rinsed/ Irrigated with Saline -Foul Odor after Cleansing No -Bioengineered Tissue No -Bleeding Controlled with Pressure -Treatment Response Procedure Tolerated Well Pain Scale: 0-10 Numeric Is Patient Pain Free? Yes Wound debrided: right lateral lower leg Laterality: Right Type of Debridement: Excisional debridement Anesthesia Used: 4% Lidocaine Solution Depth: Down to and including healthy tissue, in the subcutaneous layer Percentage of wound debrided: 100 Instrument Used: 5mm curette Tissue Removed: yellow slough, devitalized tissue Severity: Fat Layer Exposed Amount of bleeding with debridement: Mild Bleeding Controlled with: Compression and gauze Patient tolerated procedure well - Additional Wound Wound debrided: left medial hylton Laterality: Left Type of Debridement: Excisional debridement Anesthesia Used: 4% Lidocaine Solution Depth: Down to and including healthy tissue, in the subcutaneous layer Percentage of wound debrided: 100 Instrument Used: 5mm curette Tissue Removed: yellow slough, devitalized tissue Severity: Fat Layer Exposed Amount of bleeding with debridement: Mild Bleeding Controlled with: Compression and gauze Patient tolerated procedure: Patient tolerated procedure well Assessment/Plan Active Problems (Last Reviewed 08/04/17 @ 11:11 by Lucio Marx MD) Lymphedema (Chronic) Ulcer of left lower leg (Chronic) Obesity (Chronic) Ulcer of right leg (Chronic) Assessment: This is a 77-year-old male who is severely deconditioned and nonambulatory. He spends long hours each day in a sitting position, and sleeps in a sitting position as well. He developed an ulceration on the right buttock , which appears to be related to pressure phenomenon or shear/friction forces. It appears to be a stage II pressure ulceration. Patient has other existing medical conditions, which are documented elsewhere. There has been significant improvement in the status of the patient's right buttock ulceration since his initial visit, and since his most recent visit. It is now completely healed. There is no sign of infection or cellulitis. Plan: Garrett's wounds have improved. Will continue with Surepress compression and will continue treatment with silvercel to his wounds. Advised to call with any increased drainage/pain or erythema. The patient and his have been advised to elevate his lower extremities as much as possible and to continue with the use of mechanical compression pumps. Adequate nutrition has been recommended.
[2017-09-09 15:10] VITALS: BP 113/82; PULSE 74; RESP 16; TEMP 36.3
--- NOTE | 2017-09-09 19:23 | PCM.WC.PN ---
(1) Lymphedema Status: Chronic Current Visit: Yes Code(s): I89.0 - Lymphedema, not elsewhere classified (2) Ulcer of left lower leg Status: Chronic Current Visit: Yes Qualifiers: Non-pressure ulcer stage: with fat layer exposed Qualified Code(s): L97.922 - Non-pressure chronic ulcer of unspecified part of left lower leg with fat layer exposed Code(s): L97.929 - Non-pressure chronic ulcer of unspecified part of left lower leg with unspecified severity (3) Obesity Status: Chronic Current Visit: Yes Qualifiers: Obesity type: due to excess calories Code(s): E66.9 - Obesity, unspecified (4) Ulcer of right leg Status: Chronic Current Visit: Yes Qualifiers: Non-pressure ulcer stage: with fat layer exposed Qualified Code(s): L97.912 - Non-pressure chronic ulcer of unspecified part of right lower leg with fat layer exposed Code(s): L97.919 - Non-pressure chronic ulcer of unspecified part of right lower leg with unspecified severity Type of Wound Date of Service: 09/09/17 Chief Complaint: Pressure ulceration of the right buttock, stage II History of Wound: This is a 77-year-old white male who presented with venous ulcers to his lower extremities bilaterally which began several weeks ago. His was applying adaptic to these and he wasn't wearing his compression appropriately. The patient is not ambulatory, and is physically deconditioned. He spends the preponderance of his day in a sitting position, and also sleeps in a sitting position as well. The patient lives at home with his . Family members assist the in caring for her . The patient's had been using collagen hydrogel topically. The patient has been known to have swelling in his lower extremities, for which he has been treated in the past. He currently wears compression stockings of 10-15 mmHg compression, on a daily basis. He also uses mechanical compression pumps as well. 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 His appetite is said to be good. He suffers from dementia and Alzheimer's disease. He is also obese. Progress of Wound: Garrett's wounds are healed and he is tolerating surepress well. He has been using compression pumps as well and tolerating these. He has not had any increased drainage, odor or pain. - Physical Exam Vital Signs Temp Pulse Resp BP 97.3 F L 74 16 113/82 H 09/09/17 15:10 09/09/17 15:10 09/09/17 15:10 09/09/17 15:10 General: Alert, Oriented x3, Cooperative, No apparent distress HEENT: Atraumatic, Normocephalic Oral: Moist Mucosa Abdomen: Obese Extremities: Edema Skin: Ulcer/ Wound Wound Measurements and Assessment WC - Nurse 1 - General Ulcer Measurement Start: 09/02/17 15:43 Freq: Status: Active Protocol: Activity Type Activity Date Activity User E-Sign Co-Sign Detail Recorded Client Recorded Date Recorded By Document 09/09/17 15:10 [facility] [id number] 09/09/17 15:26 [facility] 09/09/17 15:10 Wound Center Nurse 1 [Ulcer Assessment] #7- RT LAT LOWER LEG -Combined with other wound No -Current Size (cm) - Length 0 -Current Size (cm) - Width 0 -Current Size (cm) - Depth 0 -Total Square Cm 0 -Date of Last Picture (Recall this 09/09/17 field) -Photo Taken Yes -Epithelialization Large 67-100% #6- LT MEDIAL HYLTON -Combined with other wound No -Current Size (cm) - Length 0 -Current Size (cm) - Width 0 -Current Size (cm) - Depth 0 -Total Square Cm 0 -Date of Last Picture (Recall this 09/09/17 field) -Photo Taken Yes -Epithelialization Large 67-100% [Edema Assessment] -Lower Limb Edema Present Yes -Right Calf (cm) 37.2 -Right Ankle (cm) 25.5 -Left Calf (cm) 40.8 -Left Ankle (cm) 23.5 WC - Nurse 2 - General Ulcer CM Notes Start: 09/02/17 15:43 Freq: Status: Active Protocol: Activity Type Activity Date Activity User E-Sign Co-Sign Detail Recorded Client Recorded Date Recorded By Document 09/09/17 16:02 [id number] 09/09/17 16:03 09/09/17 16:02 Wound Center Nurse 2 [Procedure/Treatment] #7- RT LAT LOWER LEG -Time 16:02 -Correct Patient Yes -Correct Side, Site, Position Yes -Correct Procedure Yes -Procedure Performed No -Post Debridement Size (cm) - Length 0 -Post Debridement Size (cm) - Width 0 -Post Debridement Size (cm) - Depth 0 -Total Square Cm 0 -Wound/Ulcer Outcome Healed- Epithelialized #6- LT MEDIAL HYLTON -Time 16:03 -Correct Patient Yes -Correct Side, Site, Position Yes -Correct Procedure Yes -Procedure Performed No -Post Debridement Size (cm) - Length 0 -Post Debridement Size (cm) - Width 0 -Post Debridement Size (cm) - Depth 0 -Total Square Cm 0 -Wound/Ulcer Outcome Healed- Epithelialized [See Physician Procedure note for Specifics] Pain Scale: 0-10 Numeric [Pain] -Is Patient Pain Free? Yes Psych/Mental Status: Normal Affect, Appropriate Debridement Note Post-Debridement Measurements/Treatment WC - Nurse 2 - General Ulcer CM Notes Start: 09/02/17 15:43 Freq: Status: Active Protocol: Activity Type Activity Date Activity User E-Sign Co-Sign Detail Recorded Client Recorded Date Recorded By Document 09/02/17 16:29 DV [id number] 09/02/17 16:36 DV Document 09/09/17 16:02 JS [id number] 09/09/17 16:03 09/02/17 09/09/17 16:29 16:02 Wound Center Nurse 2 #7- RT LAT LOWER LEG -Time 16:30 16:02 -Correct Patient Yes Yes -Correct Side, Site, Position Yes Yes -Correct Procedure Yes Yes -Procedure Performed Yes No -Type of Procedure Debridement -Clinical Debridement Subcutaneous -Post Debridement Size (cm) - Length 0.8 0 -Post Debridement Size (cm) - Width 0.5 0 -Post Debridement Size (cm) - Depth 0.1 0 -Total Square Cm 0.40 0 -Wound/Ulcer Outcome Not Healed Healed- Epithelialized -Ulcer Cleansing Rinsed/ Irrigated with Saline -Foul Odor after Cleansing No -Bioengineered Tissue No -Bleeding Controlled with NA -Treatment Response Procedure Tolerated Well #6- LT MEDIAL HYLTON -Time 16:31 16:03 -Correct Patient Yes Yes -Correct Side, Site, Position Yes Yes -Correct Procedure Yes Yes -Procedure Performed Yes No -Type of Procedure Debridement -Clinical Debridement Subcutaneous -Post Debridement Size (cm) - Length 5.5 0 -Post Debridement Size (cm) - Width 3.1 0 -Post Debridement Size (cm) - Depth 0.1 0 -Total Square Cm 17.05 0 -Wound/Ulcer Outcome Not Healed Healed- Epithelialized -Ulcer Cleansing Rinsed/ Irrigated with Saline -Foul Odor after Cleansing No -Bioengineered Tissue No -Bleeding Controlled with Pressure -Treatment Response Procedure Tolerated Well Pain Scale: 0-10 Numeric Is Patient Pain Free? Yes Yes Wound debrided: right lateral lower leg Laterality: Right No debridement was completed today - wound is healed - Additional Wound Wound debrided: left medial hylton Laterality: Left Operative Diagnosis: no debridement necessary due to wound being healed Assessment/Plan Active Problems (Last Reviewed 08/04/17 @ 11:11 by Lucio Marx MD) Lymphedema (Chronic) Ulcer of left lower leg (Chronic) Obesity (Chronic) Ulcer of right leg (Chronic) Assessment: This is a 77-year-old male who is severely deconditioned and nonambulatory. He spends long hours each day in a sitting position, and sleeps in a sitting position as well. He developed an ulceration on the right buttock, which appears to be related to pressure phenomenon or shear/friction forces. It appears to be a stage II pressure ulceration. Patient has other existing medical conditions, which are documented elsewhere. There has been significant improvement in the status of the patient's right buttock ulceration since his initial visit, and since his most recent visit. It is now completely healed. There is no sign of infection or cellulitis. Plan: Garrett's wounds have healed. Will continue with Surepress compression and will continue compression pump treatment. Advised to call with any increased drainage/pain or erythema or open wounds. They will follow up as needed. The patient and his have been advised to elevate his lower extremities as much as possible and to continue with the use of mechanical compression pumps. Adequate nutrition has been recommended.
--- NOTE | 2017-09-09 19:26 | PN.PCM_ITS ---
(1) Lymphedema Status: Chronic Current Visit: Yes Code(s): I89.0 - Lymphedema, not elsewhere classified (2) Ulcer of left lower leg Status: Chronic Current Visit: Yes Qualifiers: Non-pressure ulcer stage: with fat layer exposed Qualified Code(s): L97.922 - Non-pressure chronic ulcer of unspecified part of left lower leg with fat layer exposed Code(s): L97.929 - Non-pressure chronic ulcer of unspecified part of left lower leg with unspecified severity (3) Obesity Status: Chronic Current Visit: Yes Qualifiers: Obesity type: due to excess calories Code(s): E66.9 - Obesity, unspecified (4) Ulcer of right leg Status: Chronic Current Visit: Yes Qualifiers: Non-pressure ulcer stage: with fat layer exposed Qualified Code(s): L97.912 - Non-pressure chronic ulcer of unspecified part of right lower leg with fat layer exposed Code(s): L97.919 - Non-pressure chronic ulcer of unspecified part of right lower leg with unspecified severity Type of Wound Date of Service: 09/09/17 Chief Complaint: Pressure ulceration of the right buttock, stage II History of Wound: This is a 77-year-old white male who presented with venous ulcers to his lower extremities bilaterally which began several weeks ago. His was applying adaptic to these and he wasn't wearing his compression appropriately. The patient is not ambulatory, and is physically deconditioned. He spends the preponderance of his day in a sitting position, and also sleeps in a sitting position as well. The patient lives at home with his . Family members assist the in caring for her . The patient's had been using collagen hydrogel topically. The patient has been known to have swelling in his lower extremities, for which he has been treated in the past. He currently wears compression stockings of 10-15 mmHg compression, on a daily basis. He also uses mechanical compression pumps as well. 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 His appetite is said to be good. He suffers from dementia and Alzheimer's disease. He is also obese. Progress of Wound: Garrett's wounds are healed and he is tolerating surepress well. He has been using compression pumps as well and tolerating these. He has not had any increased drainage, odor or pain. - Physical Exam Vital Signs Temp Pulse Resp BP 97.3 F L 74 16 113/82 H 09/09/17 15:10 09/09/17 15:10 09/09/17 15:10 09/09/17 15:10 General: Alert, Oriented x3, Cooperative, No apparent distress HEENT: Atraumatic, Normocephalic Oral: Moist Mucosa Abdomen: Obese Extremities: Edema Skin: Ulcer/ Wound Wound Measurements and Assessment WC - Nurse 1 - General Ulcer Measurement Start: 09/02/17 15:43 Freq: Status: Active Protocol: Activity Type Activity Date Activity User E-Sign Co-Sign Detail Recorded Client Recorded Date Recorded By Document 09/09/17 15:10 [facility] [id number] 09/09/17 15:26 [facility] 09/09/17 15:10 Wound Center Nurse 1 [Ulcer Assessment] #7- RT LAT LOWER LEG -Combined with other wound No -Current Size (cm) - Length 0 -Current Size (cm) - Width 0 -Current Size (cm) - Depth 0 -Total Square Cm 0 -Date of Last Picture (Recall this 09/09/17 field) -Photo Taken Yes -Epithelialization Large 67-100% #6- LT MEDIAL HYLTON -Combined with other wound No -Current Size (cm) - Length 0 -Current Size (cm) - Width 0 -Current Size (cm) - Depth 0 -Total Square Cm 0 -Date of Last Picture (Recall this 09/09/17 field) -Photo Taken Yes -Epithelialization Large 67-100% [Edema Assessment] -Lower Limb Edema Present Yes -Right Calf (cm) 37.2 -Right Ankle (cm) 25.5 -Left Calf (cm) 40.8 -Left Ankle (cm) 23.5 WC - Nurse 2 - General Ulcer CM Notes Start: 09/02/17 15:43 Freq: Status: Active Protocol: Activity Type Activity Date Activity User E-Sign Co-Sign Detail Recorded Client Recorded Date Recorded By Document 09/09/17 16:02 [id number] 09/09/17 16:03 09/09/17 16:02 Wound Center Nurse 2 [Procedure/Treatment] #7- RT LAT LOWER LEG -Time 16:02 -Correct Patient Yes -Correct Side, Site, Position Yes -Correct Procedure Yes -Procedure Performed No -Post Debridement Size (cm) - Length 0 -Post Debridement Size (cm) - Width 0 -Post Debridement Size (cm) - Depth 0 -Total Square Cm 0 -Wound/Ulcer Outcome Healed- Epithelialized #6- LT MEDIAL HYLTON -Time 16:03 -Correct Patient Yes -Correct Side, Site, Position Yes -Correct Procedure Yes -Procedure Performed No -Post Debridement Size (cm) - Length 0 -Post Debridement Size (cm) - Width 0 -Post Debridement Size (cm) - Depth 0 -Total Square Cm 0 -Wound/Ulcer Outcome Healed- Epithelialized [See Physician Procedure note for Specifics] Pain Scale: 0-10 Numeric [Pain] -Is Patient Pain Free? Yes Psych/Mental Status: Normal Affect, Appropriate Debridement Note Post-Debridement Measurements/Treatment WC - Nurse 2 - General Ulcer CM Notes Start: 09/02/17 15:43 Freq: Status: Active Protocol: Activity Type Activity Date Activity User E-Sign Co-Sign Detail Recorded Client Recorded Date Recorded By Document 09/02/17 16:29 DV [id number] 09/02/17 16:36 DV Document 09/09/17 16:02 JS [id number] 09/09/17 16:03 09/02/17 09/09/17 16:29 16:02 Wound Center Nurse 2 #7- RT LAT LOWER LEG -Time 16:30 16:02 -Correct Patient Yes Yes -Correct Side, Site, Position Yes Yes -Correct Procedure Yes Yes -Procedure Performed Yes No -Type of Procedure Debridement -Clinical Debridement Subcutaneous -Post Debridement Size (cm) - Length 0.8 0 -Post Debridement Size (cm) - Width 0.5 0 -Post Debridement Size (cm) - Depth 0.1 0 -Total Square Cm 0.40 0 -Wound/Ulcer Outcome Not Healed Healed- Epithelialized -Ulcer Cleansing Rinsed/ Irrigated with Saline -Foul Odor after Cleansing No -Bioengineered Tissue No -Bleeding Controlled with NA -Treatment Response Procedure Tolerated Well #6- LT MEDIAL HYLTON -Time 16:31 16:03 -Correct Patient Yes Yes -Correct Side, Site, Position Yes Yes -Correct Procedure Yes Yes -Procedure Performed Yes No -Type of Procedure Debridement -Clinical Debridement Subcutaneous -Post Debridement Size (cm) - Length 5.5 0 -Post Debridement Size (cm) - Width 3.1 0 -Post Debridement Size (cm) - Depth 0.1 0 -Total Square Cm 17.05 0 -Wound/Ulcer Outcome Not Healed Healed- Epithelialized -Ulcer Cleansing Rinsed/ Irrigated with Saline -Foul Odor after Cleansing No -Bioengineered Tissue No -Bleeding Controlled with Pressure -Treatment Response Procedure Tolerated Well Pain Scale: 0-10 Numeric Is Patient Pain Free? Yes Yes Wound debrided: right lateral lower leg Laterality: Right No debridement was completed today - wound is healed - Additional Wound Wound debrided: left medial hylton Laterality: Left Operative Diagnosis: no debridement necessary due to wound being healed Assessment/Plan Active Problems (Last Reviewed 08/04/17 @ 11:11 by Lucio Marx MD) Lymphedema (Chronic) Ulcer of left lower leg (Chronic) Obesity (Chronic) Ulcer of right leg (Chronic) Assessment: This is a 77-year-old male who is severely deconditioned and nonambulatory. He spends long hours each day in a sitting position, and sleeps in a sitting position as well. He developed an ulceration on the right buttock , which appears to be related to pressure phenomenon or shear/friction forces. It appears to be a stage II pressure ulceration. Patient has other existing medical conditions, which are documented elsewhere. There has been significant improvement in the status of the patient's right buttock ulceration since his initial visit, and since his most recent visit. It is now completely healed. There is no sign of infection or cellulitis. Plan: Garrett's wounds have healed. Will continue with Surepress compression and will continue compression pump treatment. Advised to call with any increased drainage/pain or erythema or open wounds. They will follow up as needed. The patient and his have been advised to elevate his lower extremities as much as possible and to continue with the use of mechanical compression pumps. Adequate nutrition has been recommended.
== END 2017-09-17 23:59 ==
LOC: WC 15:00
PROVIDERS: Family Provider Family Medicine; PCP Family Medicine; Visit Provider Family Medicine
DX: I87.2 Venous insufficiency (chronic) (peripheral) (principal); I89.0 Lymphedema, not elsewhere classified; E66.9 Obesity, unspecified; Z71.3 Dietary counseling and surveillance; G30.9 Alzheimer's disease, unspecified; F02.80 Dementia in other diseases classified elsewhere, unspecified severity, without behavioral disturbance, psychotic disturbance, mood disturbance, and anxiety; L97.822 Non-pressure chronic ulcer of other part of left lower leg with fat layer exposed; L97.812 Non-pressure chronic ulcer of other part of right lower leg with fat layer exposed
CPT/HCPCS: 11042; 97597; 99212; 99213; G0463

== ENCOUNTER 2017-09-13 19:18 | Emergency (ER) | payer MEDICARE, SELFPAY ==
[2017-09-13 19:22] VITALS: BP 133/87; PULSE 78; RESP 19; TEMP 36.7; O2SAT 98; BMI 32.6
--- NOTE | 2017-09-13 19:24 | CT_ITS ---
STUDY: CT BRAIN WITHOUT CONTRAST REASON FOR EXAM: Male, 77 years old. Fall with head injury RADIATION DOSAGE (If Supplied By Facility): CTDIvol = ( 60.81 ) mGy, DLP = ( 1135.50 ) mGycm TECHNIQUE: Transaxial CT imaging of the brain was performed without administration of intravenous contrast material. Individualized dose optimization techniques were used for this CT. COMPARISON: 03/23/2015 FINDINGS: Normal soft tissue structures. Normal calvarium. There is moderate cerebral atrophy with widening of the extra-axial spaces and ventricular dilatation. There are areas of decreased attenuation within the white matter tracts of the supratentorial brain, consistent with microvascular disease changes. Normal basal ganglia and thalami. Normal brainstem. There is mild cerebellar atrophy. Prior infarct in the left cerebellum as well as the right high parietal lobe. There is no intracranial hemorrhage. There are no findings of an acute ischemic infarction. Normal visualized paranasal sinuses. CT/Brain/Head W/WO Contrast IMPRESSION: Chronic involutional changes of the brain. Electronically Signed: Ej Ibrahim DO at 19:44 EDT Tel , Service support ,
--- NOTE | 2017-09-13 19:29 | NURSING ---
IMMEDIATELY SENT OVER TO CT SCAN AT RISK FOR A HEAD BLEED.
[2017-09-13 19:51] LABS: Absolute Lymphocyte Count 1.15 X10^3/ul (0.83-4.51); Absolute Neutrophil Count 4.3 X10^3/uL (2.0-7.7); Basophil# 0.03 X10^3/uL; Basophil% 0.5 % (0-1); Eosinophil# 0.08 X10^3/uL; Eosinophils% 1.3 % (0-5); Hematocrit 39.3 % (40-54); Lymphocyte # 1.15 X10^3/ul (4.0); Lymphocyte % 18.4 % (19-41); Mean Corp Hgb Conc 33.1 g/gl (32-36); Mean Corpuscular Hgb 33.7 pg (27.0-32.0); Mean Corpuscular Volume 101.8 fL (80-94); Mean Platelet Vol. 9.8 fl (6.2-12.0); Monocyte# 0.71 X10^3/uL; Monocyte% 11.4 % (0-10); Neutrophil # 4.27 X10^3/uL (2.7-7.7); Neutrophil % 68.2 % (47-70); Platelet Count 159 K/mm3 (150-450); RBC Distribution Width CV 14.9 % (11.6-14.6); RBC Distribution Width SD 55.1 fl (35.1-43.9); Red Blood Count 3.86 M/mm3 (4.6-6.2); White Blood Count 6.3 K/mm3 (4.4-11.0)
[2017-09-13 19:53] LABS: POSITIVE COUNT NO; POSITIVE DIFFERENTIAL NO; POSITIVE MORPHOLOGY NO
[2017-09-13 20:05] LABS: Prothrombin Time (Protime)PT. 43.2 SECONDS (11.7-14.9)
[2017-09-13 20:06] LABS: ALB/GLOB Ratio 0.8 RATIO (0.9-2.4); AST(SGOT) 29 U/L (15-37); Alanine Aminotransfer ALT/SGPT 44 U/L (16-61); Albumin, Serum 3.3 g/dL (3.2-5.0); Alkaline Phosphatase 129 U/L (45-117); Anion Gap 10 (5-15); BUN 56 mg/dL (7-18); BUN/Creat Ratio 41.2 RATIO (10-20); Calcium,Total 8.7 mg/dL (8.5-10.1); Chloride 99 mmol/L (98-107); Creatinine, Serum 1.36 mg/dL (0.70-1.30); EST Glomerular Filtration Rate 54 mL/min (>60); Est Glom Filt Rate - Afr Amer 65 mL/min (>60); Estimated Creatinine Clearance 45.48 ml/min; Globulin 4.1 g/dL (2.2-4.2); Glucose 91 mg/dL (74-106); Potassium 3.2 mmol/L (3.5-5.1); Protein, Total 7.4 g/dL (6.4-8.2); Sodium Level 142 mmol/L (136-145)
[2017-09-13 20:13] LABS: International Normalized Ratio 4.5
[2017-09-13 20:30] VITALS: BP 118/74; PULSE 85; RESP 17; O2SAT 96
[2017-09-13 22:45] VITALS: PULSE 84; RESP 21; O2SAT 96
--- NOTE | 2017-09-13 23:10 | RAD_ITS ---
STUDY: X-RAY - LEFT KNEE REASON FOR EXAM: Male, 77 years old. Fall from chair. TECHNIQUE: 3 view(s) of the knee. COMPARISON: None. FINDINGS: Alignment is normal. There is severe medial knee joint space narrowing. Osteophytes involve patellofemoral joint. Peripheral curvilinear densities measuring 2.6 and 3.1 cm in length involving the proximal aspect of the medial femoral condyle. This could represent old trauma. An acute fracture cannot be excluded. Mild medial and lateral soft tissue swelling. No joint effusion. The soft tissue structures are unremarkable. RAD/Knee 3 Views IMPRESSION: Fractures involving the medial femoral condyle age indeterminate. If the patient has focal tenderness in this specific location correlate with CT of the knee. Severe degenerative changes of the medial compartment. Degenerative changes of the patellofemoral joint. Electronically Signed: Gilbert Jimenez MD at 23:46 EDT , Service support ,
--- NOTE | 2017-09-13 23:10 | RAD_ITS ---
STUDY: X-RAY - LEFT SHOULDER REASON FOR EXAM: Male, 77 years old. Fall from chair. TECHNIQUE: 3 view(s) of the shoulder. COMPARISON: Chest x-ray May 15, 2017. FINDINGS: Severe glenohumeral joint space narrowing. Normal acromioclavicular joint. Normal acromion. Osteophytes medial aspect of the humeral head as well as the inferior rim of the glenoid. The soft tissue structures are unremarkable. Normal visualized pulmonary apex. Sternal wires are present. Atherosclerotic calcification of the aortic arch. RAD/Shoulder min 2 Views IMPRESSION: Severe degenerative changes of the shoulder, no fracture identified. Electronically Signed: Gilbert Jimenez MD at 23:58 EDT , Service support ,
--- NOTE | 2017-09-13 23:32 | ED.VISSUMM ---
- ER Visit Summary Date of Service: 09/13/17 Chief Complaint: Fall History of Present Illness: The patient is a 77 M sustained a mechanical fall from his wheelchair. Now he is not responding as well as he normally does. He is on Coumadin. Physical Examination: He is slow to respond but responds quite properly. Moist mucous membranes, no obvious facial deformity there is a forehead abrasion. No C-spine tenderness supple neck. There is some slight left-sided paraspinal tenderness Regular rate and rhythm without any obvious murmurs Clear lungs bilaterally speaking in full sentences without any obvious respiratory distress Abdomen soft and nontender no guarding or rebound He has tenderness over his left shoulder as well as his left knee. Alert oriented ?3 with no gross focal deficit Emergency Department Course and Treatment: Patient has a negative CT of the brain. He was observed in the emergency department for about 6 hours from the time he fell. He continued to be neurologically intact. His other workup is unremarkable. He will be discharged in the care of family. He was told not to take his Coumadin for the next 3 days and then follow-up with primary care physician for further testing. Impression: Closed head injury This note was generated with [employer] dictation software. It may contain incorrect words, spelling, and punctuation that were not noted in review of the chart prior to signing ED Disposition - Plan for ED Patient: Chief Complaint: Fall Referrals: Coleman Bang MD [Primary Care Provider] -
[2017-09-13] MEDS: Acetaminophen 500 MG Tablet 1000 MG PO (23:33)
[2017-09-13 23:34] VITALS: PULSE 88; RESP 20; O2SAT 96
--- NOTE | 2017-09-13 23:38 | ED.DEP ---
ED Disposition - Plan for ED Patient: Disposition: Home or Assisted Living Chief Complaint: Fall Instructions: ED Prevention Fall Referrals: Coleman Bang MD [Primary Care Provider] - 2 Days Additional Instructions: Stop your Coumadin, follow up with your doctor in 3 days for recheck.
--- NOTE | 2017-09-13 23:55 | NURSING ---
PT HAS STERI STRIPS AND PRESSURE DRESSING TO HEAD TO HELP CONTROL BLEEDING.
[2017-09-14 00:03] VITALS: BP 135/68; PULSE 81; RESP 16; O2SAT 96
--- NOTE | 2017-09-14 00:55 | NURSING ---
BEFORE PT LEFT, PRESSURE DRESSING APPLIED. ABD, ANDRES WRAP, AND STERI STRIPS.
== END 2017-09-14 00:55 | disposition home or self-care (01) ==
PROVIDERS: Emergency Provider Emergency Medicine; Family Provider Family Medicine; PCP Family Medicine
DX: S00.81XA Abrasion of other part of head, initial encounter (principal); W05.0XXA Fall from non-moving wheelchair, initial encounter; Y93.9 Activity, unspecified; Y92.9 Unspecified place or not applicable; Y99.9 Unspecified external cause status; Z79.01 Long term (current) use of anticoagulants; Z79.899 Other long term (current) drug therapy
CPT/HCPCS: 70470; 73030; 73562; 80053; 85025; 85610; 99284; J7030; A4216

== ENCOUNTER 2018-02-13 15:32 | Emergency (ER) | payer MEDICARE, SELFPAY ==
[2018-02-13 15:33] VITALS: BP 102/36; PULSE 89; RESP 19; TEMP 35.8; O2SAT 92; BMI 28.5
--- NOTE | 2018-02-13 15:40 | CT_ITS ---
STUDY: CT BRAIN WITHOUT CONTRAST REASON FOR EXAM: Male, 77 years old. Confusion RADIATION DOSAGE (If Supplied By Facility): CTDIvol = ( 60.81 ) mGy, DLP = ( 1181.11 ) mGycm TECHNIQUE: Transaxial CT imaging of the brain was performed without administration of intravenous contrast material. Individualized dose optimization techniques were used for this CT. COMPARISON: 09/13/2017 FINDINGS: Normal soft tissue structures. Normal calvarium. There is moderate cerebral atrophy with widening of the extra-axial spaces and ventricular dilatation. There are areas of decreased attenuation within the white matter tracts of the supratentorial brain, consistent with microvascular disease changes. Normal basal ganglia and thalami. Normal brainstem. Old infarct in the left cerebellar hemisphere There is no intracranial hemorrhage. There are no findings of an acute ischemic infarction. Normal visualized paranasal sinuses. CT/Brain/Head without Contrast IMPRESSION: Chronic involutional changes of the brain. No acute hemorrhage or significant interval change Electronically Signed: Alexx Engel MD at 17:38 EST , Service support ,
--- NOTE | 2018-02-13 15:40 | CT_ITS ---
STUDY: CT ABDOMEN AND PELVIS WITHOUT CONTRAST REASON FOR EXAM: Male, 77 years old. Diffuse abdominal pain RADIATION DOSAGE (If Supplied By Facility): CTDIvol = ( 14.80 ) mGy, DLP = ( 822.25 ) mGycm TECHNIQUE: Transaxial images were obtained from the dome of the diaphragm to the symphysis pubis without oral contrast, and without intravenous contrast. Sagittal and coronal images were reconstructed. Individualized dose optimization techniques were used for this CT. COMPARISON: None. FINDINGS: There are chronic interstitial fibrotic changes of the lung bases. Previous CABG Normal liver. Normal gallbladder and extrahepatic biliary system. Normal spleen. Normal pancreas. Right adrenal gland is unremarkable. There are calcifications within the left adrenal gland, perhaps sequela from previous trauma. No obstructive uropathy, simple cysts noted in both kidneys. There is a large hiatal hernia composed mostly of the fundus of the stomach. Normal small intestine. Scattered colonic diverticulosis. There is pericolonic inflammatory stranding around the proximal sigmoid colon suggesting acute diverticulitis. No perforation or abscess. There is perirectal inflammation suggesting proctitis.. There is non-visualization of the appendix. There is diffuse atherosclerotic calcification of the abdominal aorta, without a demonstrated aneurysm. Normal inferior vena cava. Normal retroperitoneum. Normal urinary bladder. Normal abdominal wall. There are diffuse degenerative changes of the visualized lumbar spine. CT/Abdomen/Pelvis without Cont IMPRESSION: Acute uncomplicated sigmoid diverticulitis. Perirectal inflammation suggests proctitis. No mass or adenopathy noted. Left adrenal calcifications suggest previous trauma Simple renal cysts Electronically Signed: Alexx Engel MD at 17:36 EST , Service support ,
--- NOTE | 2018-02-13 15:45 | RAD_ITS ---
STUDY: X-RAY CHEST REASON FOR EXAM: Male, 77 years old. Cough, confusion TECHNIQUE: Single AP portable view of the chest. COMPARISON: 05/15/17 FINDINGS: EKG leads overlie the chest The lungs are clear and expanded. There is no demonstrated pleural abnormality. Sternal cerclage wires and vascular clips are present from a prior sternotomy and coronary artery bypass graft procedure (CABG). Normal mediastinum and jose j. Normal visualized pulmonary arteries. There is atherosclerotic calcification of the aortic arch with tortuosity. There are diffuse degenerative changes of the visualized thoracic spine. Normal visualized ribs, clavicles, and shoulders. There is no demonstrated abnormality of the visualized soft tissue structures of the upper abdomen. RAD/Chest 1 View (Portable) IMPRESSION: No acute pulmonary process Electronically Signed: Alexx Engel MD at 16:21 EST , Service support ,
--- NOTE | 2018-02-13 15:45 | ED.VISSUMM ---
- ER Visit Summary Date of Service: 02/13/18 Chief Complaint: Change of mental status, inability to care for self History of Present Illness: The patient is a 77 M presents to the emergency department by jesus. Patient currently lives at home with his . He does have a rather significant history of dementia. The patient is on Coumadin for history of A. fib and stroke. Patient's dementia has been worsening. He has had 2 months. The family states that they have been trying to get more help at home, but have not been able to arrange it. His elderly has been trying to take care of him basically cannot. 2 days ago, he had a rather sudden acute decompensation. He has normally verbal, but now is not speaking. He is just moaning. He is also had increasing delirium. He has skin breakdown because they cannot get him out of bed. The family states that he would never want anything aggressive. He would not want to be on ventilator. He would not want any acute surgical procedure. Are looking for more help and his ways to make the patient more comfortable. Physical Examination: Vital signs reviewed General: Cachectic, unkempt Head: Normocephalic, atraumatic Eyes: Pupils equal and reactive, extraocular muscles intact Neck, supple, no lymphadenopathy Heart: Regular rate and rhythm Respiratory: Diminished Abdomen: Diffusely tender Back: Ecchymosis throughout, decubitus ulceration in the buttocks Extremities: Nontender, no edema, no cords Skin: Normal color no rash Neuro: Disoriented and stuporous Test Results: [] Emergency Department Course and Treatment: The patient presents hypotensive and delirious. He has had rather acute change in his mental status. He has diffuse abdominal pain. Fluids were given. He was given analgesics. I did discuss goals of care with the family. I discussed with the over the phone. They do not want anything invasive done. Screening labs were obtained. The patient does have evidence of septic shock. He has acute kidney injury. His INR is supratherapeutic. His troponin is elevated. Head CT shows chronic change and I do suspect subacute stroke. CT of his abdomen shows acute diverticulitis. With analgesics, the patient is much more comfortable. I did discuss with family that he likely has impending given his septic shock. They wanted to proceed with hospice. I did discuss this with hospice and he was evaluated in the emergency department. The patient is much more comfortable now, he will be admitted to the inpatient hospice unit. Family is in agreement. DNR has been signed. The patient will be transferred. Treatment Plan: [] Disposition: Transfer to hospice unit Impression: 1. Septic shock 2. Acute kidney injury 3. End STEMI 4. Subacute stroke 5. Subtherapeutic INR This note was generated with [employer] dictation software. It may contain incorrect words, spelling, and punctuation that were not noted in review of the chart prior to signing ED Disposition - Plan for ED Patient: Chief Complaint: Confusion Instructions: ED Altered Loc Referrals: Coleman Bang MD [Primary Care Provider] -
[2018-02-13] MEDS: Ondansetron 4 MG/2 ML Vial IV (15:58)
[2018-02-13] MEDS: HYDROmorphone 1 MG/ML Syringe 0.5 MG IV (15:58)
[2018-02-13 16:00] VITALS: PULSE 77; RESP 19; O2SAT 100
--- NOTE | 2018-02-13 16:13 | CM.ED ---
Social Work Note Face to face with the pt's son, Dragan, and granddaughter, Tere. Introduced self and role at [facility]. Family and this documentation writer step outside of room. Pt is shouting in pain, RN assisting. Per Dragan, the pt presently resides with his in a condo. She is the primary caregiver, and his sister, Lyndsay, assists with his care. They report that there is family drama as the son and other family want the pt to go with hospice and potentially be institutionalized because of concerns with the level of care he requires and what can be offered at home. Reports that there is concern for pain management as well as he has a rash on his underside. States that his mother and sister are HCPOA and they are upset right now that the pt is in the ED. Reports that they want the pt to pass at home as the pt had stated in the past that he wanted to at home. Granddaughter also states that money is a concern as far as the cost of an ECF vs. staying at home. They report that the family physician was out to the home yesterday and believed there was a GI bleed and recommended they begin calling hospice. Per Dragan they did start to call today, but he does not know how far they got in the process. Inform that this documentation writer cannot make the referral until the HCPOA gives permission as per Dragan's report the pt is not alert and oriented himself. VM from daughter in law, Tere Starr, providing a similar history to the above. Returned call and did not get an answer. Left vm requesting a return phone call. Placed calls to both the pt's , and daughter, and neither answered. Left vm's requesting return phone calls. SW to continue to follow and assist with discharge planning. Tere Delacruz, TONYA, [place]
[2018-02-13 16:18] LABS: Absolute Lymphocyte Count 0.61 X10^3/ul (0.83-4.51); Absolute Neutrophil Count 14.6 X10^3/uL (2.0-7.7); Basophil# 0.01 X10^3/uL; Basophil% 0.1 % (0-1); Hematocrit 47.9 % (40-54); Hemoglobin 16.9 g/dl (13.0-16.5); International Normalized Ratio 5.8; Lymphocyte # 0.61 X10^3/ul (4.0); Lymphocyte % 3.8 % (19-41); Mean Corp Hgb Conc 35.3 g/gl (32-36); Mean Corpuscular Hgb 33.6 pg (27.0-32.0); Mean Corpuscular Volume 95.2 fL (80-94); Mean Platelet Vol. 11.7 fl (6.2-12.0); Monocyte# 0.99 X10^3/uL; Monocyte% 6.1 % (0-10); Neutrophil # 14.57 X10^3/uL (2.7-7.7); Neutrophil % 89.6 % (47-70); Platelet Count 155 K/mm3 (150-450); Prothrombin Time (Protime)PT. 52.6 SECONDS (11.7-14.9); RBC Distribution Width SD 50.6 fl (35.1-43.9); Red Blood Count 5.03 M/mm3 (4.6-6.2); White Blood Count 16.2 K/mm3 (4.4-11.0)
[2018-02-13 16:20] LABS: POSITIVE COUNT NO; POSITIVE DIFFERENTIAL NO; POSITIVE MORPHOLOGY NO
[2018-02-13 16:32] LABS: ALB/GLOB Ratio 0.6 RATIO (0.9-2.4); AST(SGOT) 82 U/L (15-37); Alanine Aminotransfer ALT/SGPT 34 U/L (16-61); Albumin, Serum 3.1 g/dL (3.2-5.0); Alkaline Phosphatase 118 U/L (45-117); Anion Gap 19 (5-15); BUN 134 mg/dL (7-18); Chloride 86 mmol/L (98-107); Creatinine, Serum 5.58 mg/dL (0.70-1.30); EST Glomerular Filtration Rate 11 mL/min (>60); Est Glom Filt Rate - Afr Amer 13 mL/min (>60); Estimated Creatinine Clearance 11.78 ml/min; Glucose 112 mg/dL (74-106); Potassium 2.8 mmol/L (3.5-5.1); Protein, Total 8.1 g/dL (6.4-8.2); Sodium Level 129 mmol/L (136-145)
--- NOTE | 2018-02-13 16:33 | ED.RN ---
critical lab value of INR 5.8
--- NOTE | 2018-02-13 16:39 | ED.RN ---
spoke with Hospice, Tere Social work is chang lopez.
--- NOTE | 2018-02-13 16:40 | ED.RN ---
notified Dr. Jackman of lactic 3.0
--- NOTE | 2018-02-13 17:28 | ED.RN ---
ED clerical secretary paged Hospice.
[2018-02-13 18:06] VITALS: BP 63/48; PULSE 74; RESP 17; O2SAT 98
[2018-02-13 18:38] VITALS: BP 63/48; PULSE 79; RESP 15; O2SAT 97
--- NOTE | 2018-02-13 18:38 | ED.RN ---
HOSPICE AT BEDSIDE.
[2018-02-13 20:00] LABS: Reflex Lactate? Y
== END 2018-02-13 20:41 | disposition hospice, inpatient (51) ==
LOC: ED 17:04
PROVIDERS: Emergency Provider Emergency Medicine; Family Provider Family Medicine; PCP Family Medicine
DX: A41.9 Sepsis, unspecified organism (principal); R65.21 Severe sepsis with septic shock; N17.9 Acute kidney failure, unspecified; I21.3 ST elevation (STEMI) myocardial infarction of unspecified site; I63.9 Cerebral infarction, unspecified; I95.9 Hypotension, unspecified; K57.32 Diverticulitis of large intestine without perforation or abscess without bleeding; L89.309 Pressure ulcer of unspecified buttock, unspecified stage; I48.91 Unspecified atrial fibrillation; E11.9 Type 2 diabetes mellitus without complications; I10 Essential (primary) hypertension; F03.90 Unspecified dementia, unspecified severity, without behavioral disturbance, psychotic disturbance, mood disturbance, and anxiety; Z79.01 Long term (current) use of anticoagulants; Z79.899 Other long term (current) drug therapy; Z86.73 Personal history of transient ischemic attack (TIA), and cerebral infarction without residual deficits
CPT/HCPCS: 70450; 71045; 74176; 80053; 83605; 84484; 85025; 85610; 96361; 96374; 96375; 99285; J7040; A4216; J2405